=== PATIENT | female | born 1965 | race Caucasian/White ===

== ENCOUNTER 2021-05-07 12:22 | Emergency (ER) | payer BC, OTHER ==
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
[2021-05-07 14:38] VITALS: BP 133/67; TEMP 98.4; O2SAT 100
--- OUTSIDE RECORDS SUMMARY | 2021-05-16 11:39 | XMS REPORT | Continuity of Care Document ---
:1965 Author Organization [facility] t Address [address] [place] [address] Care Team Providers Name Role Phone Dipak Primary Care Physician ANA M Attending Clinician Unavailable Ozzie VEGA Attending Clinician Unavailable Abel Manning MD Attending Clinician González VEGA Attending Clinician Unavailable Daren VEGA Attending Clinician Unavailable LUCIANO Attending Clinician Unavailable Abel MANNING Attending Clinician Unavailable ANA M Attending Clinician Unavailable JOSE Attending Clinician Unavailable Payers Payer Name Policy Type Policy Number Effective Date Expiration Date Jamee noe [employer] [id number] 2017 [facility] 00:00:00 Problems Condition Condition Condition Status Onset Resolution Last Treating Co mments Source Name Details Category Date Date Treatment Clinician Date History of History of Disease Active 2020- U nivers total total 0-27 [place]y [place] [facility] History of History of Disease Active 2020-1 U nivers bladder bladder 0-27 [place] 00 [facility] History of History of Disease Active 2020-1 U nivers hypothyroi hypothyroi 0-27 it y of dism dism 00:00: [place] [id number] Medical Branch Hot Hot Disease Active 2020-1 Univers flashes flashes 0-27 ity of due to due to 00:00: [place] menopause menopause 00 [facility] Postmenopa Postmenopa Disease Active 2020-1 U nivers usal HRT usal HRT 0-27 ity of (hormone (hormone 00:00: [place] replacemen replacemen 00 Me dical t therapy) t therapy) Br anch Hypertensi Hypertensi Problem Active U nivers on on ity of [place] [facility] Menopause Menopause Problem Active Uni vers ity of [place] [facility] Hypothyroi Hypothyroi Problem Active U nivers dism, dism, [place] Low serum Low serum Problem Active Uni vers vitamin D vitamin D ity of [place] [facility] History of History of Problem Resolve Univers thyroid thyroid d ity of nodule nodule [place] [facility] S/P S/P Problem Active Univers radioactiv radioactiv it y of e iodine e iodine [place] thyroid thyroid Physici ablation ablation ans Allergies, Adverse Reactions, Alerts Allergy Allergy Status Severity Reaction(s) Onset Inactive Treating Comm ents Source Name Type Date Date Clinician Acetamin Propensi Active Swelling 2012-07 Univ ers ophen ty to 0-09 ity of adverse 00:00: [place] reaction 00 Medical s Branch ACETAMIN DRUG Active High Anaphylaxis 2012-07 Uni vers OPHEN INGREDI 0-09 ity of 00:00: [place] [facility] NO KNOWN Drug Active Univers ALLERGIE Class ity of S [facility] Acetamin Propensi Active Anaphylaxis U nivers ophen ty to ity of TABS adverse [place] reaction Physici s to ans drug (finding ) Family History Family Member Diagnosis Comments Start Date Stop Date Source Mother Family history of Crohn's University of disease [place] [facility] Mother Family history of Univers ity of arthritis [place] [facility] Mother Family history of lung Un iversity of cancer [place] [facility] Mother Family history of University [facility] [place] [facility] Father Family history of Univers ity of hypertension [place] [facility] ians Father Family history of Univers ity of hypercholesterolemia [facility] s Physicians Father Family history of Diabetes University of type 2, controlled [place] [facility] Social History Social Habit Start Date Stop Date Quantity Comments Source Exposure to Not sure [facility] SARS-CoV-2 [place] Medical (event) Branch Tobacco use and 2020-04-29 2020-04-29 Never used Universit y of exposure 00:00:00 00:00:00 [facility] Alcohol intake 2020-04-29 2020-04-29 Ex-drinker [facility] 00:00:00 00:00:00 (finding) [facility] Sex Ass[birth year] At [birth year] [place] [facility] 00:00:00 00:00:00 Smoking Status Start Date Stop Date Source Tobacco [facility] Never smoker [facility] Branch Medications Ordered Filled Start Stop Current Ordering Indication Dosage Frequency Signature Comments Components Source Medication Medication Date Date Medication? Clinician (SIG) Name Name levothyroxi 2020-07- Yes [id number] 125ug QD Take 1 [facility] ne 07-15-13 tablet Health (Synthroid, 00:00: 05:59 (125 mcg Levoxyl) 00 :00 total) by 125 MCG mouth 1 tablet (one) time each day. ESTRADIOL 2020-07 Yes [id number] TAKE 1 Univers mg tablet -02 TABLET BY ity o f 00:00: MOUTH [place] 00 EVERY DAY Medical Branch Cholecalcif 2019-07 Yes Take by Un ana shanti, 0-27 mouth. ity of Vitamin D3, 20:38: [place] 50 mcg 08 Medical (2,000 Branch unit) tablet Potassium 2019-07 Yes Take by IPPLEX ers 99 mg Tab 0-27 mouth. ity of 20:38: [place] [address] Medical Branch Cetirizine 2019-07 Yes Take by Uni vers (ZYRTEC) 10 0-27 mouth. ity of mg capsule 20:38: [address] Branch Cholecalcif 2019-07 Yes Take by Un ana shanti, 0-27 mouth. ity of Vitamin D3, 20:38: [place] 50 mcg 08 Medical (2,000 Branch unit) tablet Potassium 2019- Yes Take by IPPLEX ers 99 mg Tab 0-27 mouth. ity of 20:38: [place] [address] Medical Branch Cetirizine 2019-07 Yes Take by Uni vers (ZYRTEC) 10 0-27 mouth. ity of mg capsule 20:38: [place] [address] Medical Branch Cholecalcif 2019- Yes Take by Un ana shanti, 0-27 mouth. ity of Vitamin D3, 20:38: [place] 50 mcg 08 Medical (2,000 Branch unit) tablet Potassium 2020- Yes Take by IPPLEX ers 99 mg Tab 0-27 mouth. ity of 20:38: [place] [address] Medical Branch Cetirizine 2019- Yes Take by Uni vers (ZYRTEC) 10 0-27 mouth. ity of mg capsule 20:38: [place] [address] Medical Branch Cholecalcif 2019- Yes Take by Un ana shanti, 0-27 mouth. ity of Vitamin D3, 15:38: [place] 50 [facility] 08 Medical (2,000 Branch unit) tablet Potassium 2019-07 Yes Take by Univ ers 99 mg Tab 0-27 mouth. ity of 15:38: 08 Medical Branch Cetirizine 2019-07 Yes Take by Uni vers (ZYRTEC) 10 0-27 mouth. ity of mg capsule 15:38: [place] 08 Medical Branch estradioL 1 2019-07 Yes [id number] 1mg Take 1 Univers mg tablet 0-27 tablet by ity o f 00:00: mouth [place] 00 daily. Medical Branch estradioL 1 2019-07 Yes [id number] 1mg Take 1 Univers mg tablet 0-27 tablet by ity o f 00:00: mouth [place] 00 daily. Medical Branch estradioL 1 2019-07 Yes [id number] 1mg Take 1 Univers mg tablet 0-27 tablet by ity o f 00:00: mouth [place] 00 daily. Medical Branch estradioL 1 2019-07- No [id number] 1mg Take 1 Univers mg tablet 0-27 05-05 tablet by ity of 00:00: 00:00 mouth [place] 00 :00 daily. Medical Branch levothyroxi 2019-0 Yes 100ug Take 100 U nivers ne 100 mcg 8-25 mcg by ity of tablet 00:00: mouth. [place] [facility] Branch levothyroxi 2019-0 Yes 100ug Take 100 U nivers ne 100 mcg 8-25 mcg by ity of tablet 00:00: mouth. [place] [facility] Branch levothyroxi 0 Yes 100ug Take 100 U nivers ne 100 mcg 8-25 mcg by ity of tablet 00:00: mouth. [place] [facility] Branch levothyroxi 0 Yes 100ug Take 100 U nivers ne 100 mcg 8-25 mcg by ity of tablet 00:00: mouth. [place] [facility] Branch Levothyroxi Levothyroxi Yes MARTHA 1 QD TAKE 1 Univers ne Sodium ne Sodium WIRFEL TABLET i ty of 100 MCG 100 MCG M.D. DAILY. [place] Oral Tablet Oral Tablet P hysici ans Vitamin D Vitamin D Yes 1 QD TAKE 1 Uni vers 1000 UNIT 1000 UNIT TABLET ity of TABS TABS DAILY. [place] Physici ans CVS Allergy CVS Allergy Yes U nivers CAPS CAPS ity of [place] Phys[facility] ans Vital Signs Vital Name Observation Time Observation Value Comments Source Systolic blood 2020-04-29 124 mm[Hg] [facility] 20:33:00 [facility] Diastolic blood 2020-04-29 74 mm[Hg] University o f pressure 20:33:00 [facility] Heart rate 2020-04-29 94 /min University of 20:33:00 [facility] Body height 2020-04-29 167.6 cm University of 20:33:00 [facility] Body weight 2020-04-29 105.688 kg University of 20:33:00 [facility] BMI 2020-04-29 37.61 kg/m2 University of 20:33:00 [facility] Systolic blood 2020-02-26 123 mm[Hg] Location: E; [facility] 15:41:00 Position: [place] Physician s Sitting Diastolic blood 2020-02-26 81 mm[Hg] [facility]: [facility]; [facility] 15:41:00 Position: [place] Physician s Sitting Body height 2020-02-26 66 [in_us] [facility] 15:41:00 [place] Physician s Weight 2020-02-26 231.6 [lb_av] University of 15:41:00 [place] Physician s Body mass index 2020-02-26 37.38 kg/m2 University o f (BMI) [Ratio] 15:41:00 [place] Physicia ns Heart Rate 2020-02-26 63 /min Location: R [facility] 15:41:00 Brachial [place] [facility]ician s Artery; Respiratory rate 2020-02-26 16 /min Quality: Normal Universi of 15:41:00 [place] Physician s BP Systolic 2018-02-21 108 mm[Hg] Location: [facility] 10:58:00 Position: [place] Physician s Sitting BP Diastolic 2018-02-21 75 mm[Hg] Location: [facility] 10:58:00 Position: [place] Physician s Sitting Height 2018-02-21 66 [in_us] [facility] 10:58:00 [place] Physician s Weight 2018-02-21 252.2 [lb_av] University of 10:58:00 [place] Physician s Body Mass Index 2018-02-21 40.71 kg/m2 University o f Calculated 10:58:00 [place] Physician s Temperature 2018-02-21 98.1 [degF] Method: Oral [facility] 10:58:00 [place] Phys[facility] s Heart Rate 2018-02-21 79 /min [facility] of 10:58:00 [place] Physician s Respiration Rate 2018-02-21 18 /min University 10:58:00 [place] Physician s Procedures Procedure Date / Time Performing Clinician Source Performed [QL] TSH, 3RD 2020-01-28 00:00:00 [facility] GENERATION Physicians [QL] T4, FREE 2020-01-28 00:00:00 [facility] Physicians [QL] VITAMIN D, 2020-01-28 00:00:00 [facility] 25-HYDROXY, LC/MS/MS Physicians [QLH] T4, FREE 2018-02-21 00:00:00 [facility] Physicians [QLH] T3, TOTAL 2018-02-21 00:00:00 [facility] Physicians [QLH] TSH, 3RD 2018-02-21 00:00:00 [facility] GENERATION Physicians [[facility]] VITAMIN D, 2018-02-21 00:00:00 [facility] 25-HYDROXY, LC/MS/MS Physicians History of Bladder [facility] Surgery Physicians History of Oophorectomy [facility] - Unilateral (Removal Physicians Of [facility] [place]) History of Hand [facility] xa fracture repair Physicians Encounters Start End Encounter Admission Attending Care Care Encounter Source Date/Time Date/Time Type Type Clinicians Facility Department ID 2021-05-04 Outpatient [facility] [id number] [place] 12:31:42 [facility] 2020-11-08 Outpatient [facility] [id number] [place] 03:27:26 [facility] 2021-05-12 2021-05-12 Telephone Neda Horne [place] [id number] [place] 00:00:00 00:00:00 Neda Horne [id number] [facility] MEDICAL [id number] [place] [id number] 2021-05-11 2021-05-11 Orders MARQUEZ Tolbert [id number] [place] 00:00:00 00:00:00 Only Martha GOODEN [id number] [facility] MEDICAL [id number] [facility] [id number] 2021-05-05 2021-05-05 Refill CESAR Mnaning [id number] Univers 00:00:00 00:00:00 [facility] [id number] ity of CLEAR [id number] Bairon tucker [place] [id number] [facility] 095 Branch OFFICE BUILDING 2021-04-27 2021-04-27 Orders MARQUEZ Tolbert [id number] [place] 00:00:00 00:00:00 Only Martha GOODEN [id number] H [facility] MEDICAL [id number] [facility] [id number] 2021-04-23 2021-04-23 Telephone Cristel Claudio [id number] [place] 00:00:00 00:00:00 Cristel Claudio [id number] Health MEDICAL [id number] [place] [id number] 2021-04-21 2021-04-21 Telephone MARQUEZ Tolbert [id number] [place] 00:00:00 00:00:00 Martha GOODEN [id number] H [facility] MEDICAL [id number] [facility] [id number] 2021-01-16 2021-01-16 Telephone Shelby Mercedes 1.2.840 .114 [id number] [place] 00:00:00 00:00:00 Shelby Mercedes [id number] Health MEDICAL [id number] [place] [id number] 2021-01-16 2021-01-16 Telephone Shelby Mercedes 1.2.840 .114 [id number] [place] 00:00:00 00:00:00 Shelby Mercedes [id number] Health MEDICAL [id number] [place] [id number] 2020-09-24 2020-09-24 Outpatient [facility] [id number] [place] 00:00:00 00:00:00 [facility] [address] 2020-09-24 2020-09-24 Outpatient [facility] [id number] [place] 00:00:00 00:00:00 [facility] [address] 2020-09-24 2020-09-24 Outpatient LUCIANO, [facility] [id number] [place] 00:00:00 00:00:00 [facility] [address] 2020-09-24 2020-09-24 Outpatient LUCIANO, [facility] [id number] [place] 00:00:00 00:00:00 [facility] 781 Method i 2020-06-13 2020-06-13 Outpatient LUCIANO, [facility] [id number] [place] 00:00:00 00:00:00 CHIU 328 Method i 2020-04-29 2020-04-29 Office [facility] [id number] Univers 15:12:53 17:02:28 Visit Toyin [facility] [id number] ity deb [place] [id number] Bairon tucker [place] [id number] [address] [facility] 2020-04-29 2020-04-29 Outpatient Abel [facility] [id number] Univers 15:30:00 15:30:[address] [facility] 2020-03-04 2020-03-04 Outpatient [facility] [id number] [place] 00:00:00 00:00:00 965 Method i 2020-02-26 2020-02-26 Appointmen MARQEUZ TOLBERT [facility] [id number] Univers 15:45:00 15:45:00 t; MARTHA TOLBERT M.D. lty - ity of Mari HENDRICKSON M.D. Physici ans 2019-12-11 2019-12-11 Outpatient CLONINGER, [facility] [id number] [place] 00:00:00 00:00:00 SILKE [address] 2019-12-11 2019-12-11 Outpatient CLONINGER, [facility] [id number] [place] 00:00:00 00:00:00 SILKE [address] 2019-10-06 2019-10-06 Emergency E [facility]BL [facility] [id number] [facility] 03:14:00 03:14:00 2018-02-21 2018-02-21 Appointmen MARQUEZ TOLBERT [id number] [facility] 10:30:00 10:30:00 t; MARTHA TOLBERT M.D. [facility] Margarita Haynes M.D. Physici ans Results Test Description Test Time Test Comments Results Result Comments Source [QL] T4, FREE 2020-02-14 13:18:00 Test Item Value Reference Range Interpretation Comme nts T4,Free(Direct) (test code = 3024-7) 1.49 ng/dL 0.82-1.77 [facility] Physicians[] TSH, 3RD [id number] 13:18:00 Test Item Value Reference Range Interpretation Comments TSH (test code = 68145-7) 2.240 {uIU/mL} 0.450-4.500 [facility] Physicians[L] 25-Hydroxyvitamin D LCMS [id number] 13:18:00 Test Item Value Reference Range Interpretation Comments 25-Hydroxy, 32 ng/mL Reference Range :All Ages: Vitamin D Target levels 3 0 - 100 (test code = 89287-6) 25-Hydroxy, 16 ng/mL This test was d eveloped and its Vitamin D-2 performance (test code = [place] [address]-2) [facility]. It has not been cleared or appr ovedby the Food and Drug Admini stration. 25-Hydroxy, 16 ng/mL This test was d eveloped and its Vitamin D-3 performance (test code = characteristics determined by 1989-3) [facility]. It has not been cleared or appr ovedby the Food and Drug Admini stration. [facility] Physicians[[facility]] TSH, 3RD [id number] 12:38:00 Test Item Value Reference Range Interpretation Comments TSH; Below Low Threshold (test 0.067 {uIU/mL} 0.450-4.500 code = 37188-8) [facility] Physicians[[facility]] VITAMIN D, 25-HYDROXY, LC/MS/[id number] 12:38:00 Test Item Value Reference Range Interpretation Comments Vitamin D, 20.0 ng/mL 30.0-100.0 Vitamin D defic iency has 25-Hydroxy; Below been defin ed by the Low Threshold (test Institut e ofMedicine and code = 37989-5) an Endocrine Society practice guidel ine as alevel of serum 25-OH vitamin D less than 20 ng/mL (1,2).The Endocrine Socie ty went on to further d efine vitamin Dinsuff iciency as a level betw een 21 and 29 ng/mL (2 ).1. IOM ([place] of M edicine). 2010. Dietary r eference intakes for ca lcium and D. Garcias D C: The [employer] ies Press.2. Brandon SANTA, Vera LIMA, Lexa mena FRANKEL, et al. Evaluatio n, treatment, and prevention of v itamin D deficiency: an Endocrine Socie clinical practi ce guideline. JCEM . 2010; 96(7):1911 -30. [facility] Physicians[[facility]] T3, [id number] 12:38:00 Test Item Value Reference Range Interpretation Comments Triiodothyronine (T3) (test code = 110 ng/dL 71-180 3053-6) [facility] Physicians[[facility]] T4, [id number] 12:38:00 Test Item Value Reference Range Interpretation Comments T4,Free(Direct) (test code = 1.73 ng/dL 0.82-1.77 3024-7) University [facility] [place] [facility] Physicians
== END 2021-05-07 14:34 | disposition home or self-care (01) ==
LOC: ER 12:22
DX: S16.1XXA Strain of muscle, fascia and tendon at neck level, initial encounter (principal); V49.40XA Driver injured in collision with unspecified motor vehicles in traffic accident, initial encounter; I10 Essential (primary) hypertension; Z88.6 Allergy status to analgesic agent; Z88.8 Allergy status to other drugs, medicaments and biological substances
CPT/HCPCS: 72125; 99283

== ENCOUNTER 2021-10-27 13:16 | Emergency (ER) | payer BC ==
--- OUTSIDE RECORDS SUMMARY | 2021-10-27 13:24 | XMS REPORT | Continuity of Care Document ---
:1965 Author Organization [facility] t Address [address] [place] [address] Care Team Providers Name Role Phone Dipak Primary Care Physician ANA M Attending Clinician Unavailable TERESITA Attending Clinician Unavailable Chevy Sampson MD Attending Clinician Hong RUIZ Attending Clinician Doctor Unassigned, Name Attending Clinician Unavailable Ton VEGA Attending Clinician Unavailable Teri Angel MD Attending Clinician Ozzie VEGA Attending Clinician Unavailable Sha VERA Attending Clinician Unavailable González VEGA Attending Clinician Unavailable Daren VEGA Attending Clinician Unavailable ANA M Attending Clinician Unavailable JOSE MIGUEL CABRALES Attending Clinician Unavailable Payers Payer Name Policy Type Policy Number Effective Date Expiration Date S kusum [employer] [id number] 2017 [facility] 00:00:00 [employer] [id number] 2017 00:00:00 Problems Condition Condition Condition Status Onset Resolution Last Treating Co mments Source Name Details Category Date Date Treatment Clinician Date Wellness Wellness Disease Active Unive rs examinatio examinatio 09-01 it y of n n 00:00: [place] 00 Medical Branch Intermitte Intermitte Disease Active U nivers nt pain nt pain 2-21 ity of and and 00:00: [place] swelling swelling 00 Medica l of hand of hand Branch Bilateral Bilateral Disease Active Uni vers swelling swelling 2-21 ity of of feet of feet 00:00: [place] and ankles and ankles 00 Me dical Branch History of History of Disease Active 2019-07 U nivers total total 0-27 ity of hysterecto [place]recto [place] my my 00 Medical [facility] History of History of Disease Active 2019-07 U nivers bladder bladder 0-27 [place] of [place] procedure 00 [facility] Branch History of History of Disease Active 2019-07 U nivers hypothyroi hypothyroi 0-27 it y of dism dism 00:00: [place] 00 Medical Branch Hot Hot Disease Active 2019-07 Univers flashes flashes 0-27 ity of due to due to 00:00: [place] menopause menopause 00 [facility] Branch Postmenopa Postmenopa Disease Active 2019-07 U nivers usal HRT usal HRT 0-27 ity of (hormone (hormone 00:00: [place] replacemen replacemen 00 Me dical t therapy) t therapy) Br anch CHEST PAIN Diagnosis Active 2019-11-30 Memoria 4-04 11:21:00 l CHEST 00:00: [place] PAIN 00 Active 10/06/2019 [facility] Pelvic Pelvic Disease Active Methodi prolapse prolapse 5-03 st 00:00: Hospita 00 l Myalgia Myalgia Disease Active 2017-07 Univers 0-09 ity of 00:00: [place] 00 Medical Branch Stress Stress Disease Active Overview: Univer s incontinen incontinen 01-10 Formattin ity of ce of ce of 00:00: g of this [place] urine urine 00 note Medical might be Branch different from the original. Formattin g of this note might be different from the original. Seen by urology in past and had bladder suspensio n without mesh; patient still having issues of incontine nce. Other Other Disease Active Overview: Univer s specified specified 01-09 Formattin i ty of hypothyroi hypothyroi 00:00: g of this [place] dism dism 00 note Medical might be Branch different from the original. Formattin g of this note might be different from the original. She was placed on levothyro xine and then had to add cytomel because she couldn't get stable. She was seeing a specialis t but would like to simply her regimen; s/p CEDEÑO s/s to patient stating had a "hot nodule." Essential Essential Disease Active Overview: Univers hypertensi hypertensi 01-09 Formattin ity of on on 00:00: g of this [place] 00 note Medical might be Branch different from the original. Formattin g of this note might be different from the original. Has been skipping medicatio ns and noticed bp has been staying low; she is working on weight loss and excercisi ng a lot. She is not having any chest pain or sob or headaches . R10.9 - Diagnosis Active 2017-01-31 Me moria UNSPECIFIE 01-24 09:31:00 l D R10.9 - 00:01: [place] ABDOMINAL UNSPECIFIE 00 PAIN D ABDOMINAL PAIN Active 01/24/2017 CLIVE Diaz Irregular Irregular Disease Active Uni vers menstrual menstrual 5-24 ity of cycle cycle 00:00: [place] [facility] Female Female Disease Active Univers genital genital 1-12 ity of prolapse prolapse 00:00: [place] [facility] Cystocele, Cystocele, Disease Active U nivers midline midline 1-11 ity of 00:00: Medical Branch Morbid Morbid Disease Active Univers obesity obesity 1-11 ity of 00:00: Medical Branch Rectocele Rectocele Disease Active Uni vers 1-11 ity of 00:00: Medical Branch RT HIP Diagnosis Active 2017-06-17 Mem oria 07-04 18:22:00 l RT HIP 08:00: P[place] 00 Active 07/04/2016 [facility] Degenerati Problem Active 2021-02-20 M emoria on of 01-17 22:49:12 l lumbar 00:00: [place] interverte Degenerati 00 bral disc on of (disorder) lumbar interverte bral disc (disorder) Active 01/17/2015 Problem 02/20/2021 Data migrated from [facility] on 02/05/15. [facility],Mike [place] Edema of Problem Active 2021-02-20 Mem oria lower 01-17 22:49:12 l extremity Edema of 00:00: Her maddox (finding) lower 00 extremity (finding) Active 01/17/2015 Problem 02/20/2021 Data migrated from [employer] on 02/05/15. [facility], Mike [place] Amnesia Problem Active 2021-02-20 Mina jameson (finding) 01-03 22:49:12 l Amnesia 00:00: [place] (finding) 00 Active 01/03/2015 Problem 02/20/2021 Data migrated from [employer] on 01/08/15. [facility], [place] Low back Problem Active 2021-02-20 Mem oria strain 01-03 22:49:12 l (disorder) Low back 00:00: He rmann strain 00 (disorder) Active 01/03/2015 Problem 02/20/2021 Data migrated from [employer] on 01/08/15. [facility] [place] Urinary Problem Active 2021-02-20 Mina jameson incontinen 07-24 22:49:12 l ce Urinary 00:00: [place] (finding) incontinen 00 ce (finding) Active 07/24/2014 Problem 02/20/2021 Data migrated from [employer] on 01/08/15.Luis Antonio a migrated from [facility] on 12/03/14. [facility], Mike [place] Vitamin D Vitamin D Disease Active Uni vers deficiency deficiency 07-05 it y of 00:00: [place] 00 Medical Branch Hypertensi Problem Active 2021-02-20 M emoria ve 04-02 22:49:12 l disorder, 00:00: [place] systemic Hypertensi 00 arterial ve (disorder) disorder, systemic arterial (disorder) Active 04/02/2014 Problem 02/20/2021 Data migrated from [employer] on 12/03/14. [facility] [place] Hypothyroi Problem Active 2018-10-02 M emoria dism 04-02 21:55:15 l (disorder) 00:00: Anish n Hypothyroi 00 dism (disorder) Active 04/02/2014 Problem 10/02/2018 Data migrated from [facility] on 12/03/14. [facility], MARK [place] Allergic Problem Active 2021-02-20 Mem oria rhinitis 03-25 22:49:12 l (disorder) Allergic 00:00: [place] rhinitis 00 (disorder) Active 03/25/2014 Problem 02/20/2021 Data migrated from [facility] on 12/03/14. [facility], [place] MARK [place] Obesity Problem Active 2021-02-20 Mina jameson (disorder) 03-25 22:49:12 l Obesity 00:00: [place] (disorder) 00 Active 03/25/2014 Problem 02/20/2021 Data migrated from [facility] on 12/03/14. 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 [facility] [place] Neck pain Problem Active 2021-02-20 Me moria (finding) 03-16 22:49:12 l Neck 00:00: [place] pain 00 (finding) Active 03/16/2014 Problem 02/20/2021 Data migrated from [facility] on 12/03/14. [facility], [place], Dino [place] Encounter Encounter Disease Active Uni vers for for 03-06 ity of screening screening 00:[place] for for 00 Medical diabetes diabetes Branch mellitus mellitus Postablati Postablati Disease Active U nivers ve ve 03-06 ity of hypothyroi hypothyroi 00:[place] dis[place] dism 00 Medical Branch Diarrhea Problem Resolve 2021-02-20 Me moria (finding) d 22:49:12 l Diarrhea Anish n (finding) Resolved Problem 02/20/2021 Medical Group, Mike Diaz Otalgia Problem Resolve 2021-02-20 Mem oria (disorder) d 22:49:12 l Otalgia Pasha (disorder) Resolved Problem 02/20/2021 Medical Group, Mike Diaz Flushing Problem Active 2021-02-20 Mem oria (disorder) 22:49:12 l Flushing Anish n (disorder) Active Problem 02/20/2021 [facility], [place] 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:49:12 l hypothyroi Anish n 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) Active Problem 02/20/2021 Medical Group, Mike Diaz Nausea Problem Active 2021-02-20 Memor ia (finding) 22:49:12 l Nausea [place] (finding) Active Problem 02/20/2021 [facility], [place] Stomach Problem Active 2021-02-20 Mina jameson cramps 22:49:12 l (finding) Stomach Herm guevara cramps (finding) Active Problem 02/20/2021 Medical Group, Mike Diaz Past Problem Active 2021-02-20 Memor ia history of 22:49:12 l procedure Past Pasha (context-d history of ependent procedure category) (context-d ependent category) Active Problem 02/20/2021 Medical Group History of History of Problem Resolve Univers thyroid thyroid d ity of nodule nodule [place] [facility] S/P S/P Problem Active Univers radioactiv radioactiv it y of e iodine e iodine [place] thyroid thyroid Physici ablation ablation ans Hypertensi Hypertensi Problem Active U nivers on on ity of [place] [facility] ans Menopause Menopause Problem Active Uni vers ity of [place] [facility] Hypothyroi Hypothyroi Problem Active U nivers dism, dism, [place] of secondary secondary [place] [facility] Low serum Low serum Problem Active Uni vers vitamin D vitamin D ity of [place] [facility] ans Vitamin D Problem Resolve 2015-0 2021-02-20 2021-02-20 Memoria deficiency d 4-02 22:49:12 22:49:12 l (disorder) Vitamin 00:00: Her maddox D 00 deficiency (disorder) Resolved 10/03/2014 Problem 02/20/2021 Data migrated from [facility] on 01/08/15. Medical Group, Mike Diaz Acute Problem Resolve 2013-072021-02-20 2021-02-20 Memoria pharyngiti d 08-21 22:49:12 22:49:12 l s Acute 00:00: [place] (disorder) pharyngiti 00 s (disorder) Resolved 06/20/2014 Problem 02/20/2021 Data migrated from [facility] on 01/17/15. Medical [facility], Mike Diaz Dysuria Problem Resolve 2013-072021-02-20 2021-02-20 Memoria (finding) d 08-21 22:49:12 22:49:12 l Dysuria 00:00: [place] (finding) 00 Resolved 06/20/2014 Problem 02/20/2021 Data migrated from [facility] on 12/03/14. [facility], Mike Diaz Otitis Problem Resolve 2021-02-20 2021-02-20 Memoria media d 03-20 22:49:12 22:49:12 l (disorder) Otitis 00:00: Herm guevara media 00 (disorder) Resolved 03/20/2014 Problem 02/20/2021 Data migrated from [facility] on 01/17/15. [facility], Mike Diaz History of Past Illness Condition Condition Condition Status Onset Resolution Last Treating Co mments Source Name Details Category Date Date Treatment Clinician Date Atrophy of Problem 2021-02-08 2021-02-08 Memoria thyroid - 23:53:40 23:53:40 l (acquired) Atrophy 17:00: Her maddox of thyroid 00 (acquired) 02/05/2021 02/08/2021 Medical Group Encounter Problem 2020-12-31 2020-12-31 Memoria for 12-28 22:06:22 22:06:22 l screening 17:00: [place] for Encounter 00 infections for with a screening predominan for tly sexual infections mode of with a transmissi predominan on tly sexual mode of transmissi on 12/28/2020 12/31/2020 Medical Group Other Problem 2020-2020-10-10 2020-10-10 M emoria interverte 4-06 21:48:22 21:48:22 l bral disc Other 17:00: Anish chowdary degenerati interverte 00 on, lumbar bral disc region degenerati on, lumbar region 10/07/2020 10/10/2020 Medical Group 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 2020-03-24 Memoria single 03-21 21:14:22 21:14:22 l thyroid Nontoxic 17:00: Lauren nn nodule single 00 thyroid nodule 03/21/2020 03/24/2020 Medical Group Abnormal Problem 2020-03-24 2020-03-24 Memoria finding of 03-21 21:14:22 21:14:22 l blood Abnormal 17:00: Anish chowdary chemistry, finding of 00 unspecifie blood d chemistry, unspecifie d 03/21/2020 03/24/2020 Medical Group Cystocele, Problem 2019-2020-03-07 2020-03-07 Memoria unspecifie 03-03 00:24:06 00:24:06 l d 17:00: Pasha Cystocele, 00 unspecifie d 03/03/2020 03/07/2020 Medical Group Other Problem 2019-2019-10-08 2019-10-08 M emoria chest pain 4-04 21:04:02 21:04:02 l Other 17:00: [place] chest pain 00 10/06/2019 10/08/2019 [facility] Pain in Problem 2019-2019-10-08 2019-10-08 Memoria left arm 4-04 21:04:02 21:04:02 l Pain in 17:00: [place] left arm 00 0 10/08/2019 [facility] Allergies, Adverse Reactions, Alerts Allergy Allergy Status Severity Reaction(s) Onset Inactive Treating Comm ents Source Name Type Date Date Clinician Acetamin Propensi Active Anaphylaxis 2018- M ethodi ophen ty to 01-09 st adverse 00:00: Hospita reaction 00 l s to drug Cefdinir Propensi Active Other (See headache Methodi ty to Comments) 1-12 st adverse 00:00: [facility]osp[facility] reaction 00 l s to drug Cefdinir Drug Active Other - See headache U nivers Allergy comments -12 ity of 00:00: [place] 00 Medical Branch CEFDINIR DRUG Active Other-Cmnt Univ ers INGREDI -12 ity of 00:00: [place] 00 Medical Branch acetamin acetamin Active Memori a ophen<simpson ophen<simpson 9-17 l p>1</sup p>1</sup 05:00: Anish n > > 00 Acetamin Propensi Active Swelling 2012-07 Univ ers ophen ty to 0-09 ity of adverse 00:00: [place] reaction 00 Medical s Branch ACETAMIN DRUG Active High Anaphylaxis 2012-07 Uni vers OPHEN INGREDI 0-09 ity of 00:00: [place] 00 Medical Branch cefdinir cefdinir Active Memori a <sup>2</ <sup>2</ l sup> sup> Pasha Family History Family Member Diagnosis Comments Start Date Stop Date Source Natural father Diabetes [facility] [place] [facility] Natural father Hyperlipidemia [facility] Natural father Hypertension [facility] Natural mother Lung cancer [facility] [place] [facility] Paternal uncle Colon cancer [facility] Mother Family history of Crohn's [facility] [place] [facility] Mother Family history of Univers ity of arthritis [place] [facility] Mother Family history of lung Un iversity of cancer [place] [facility] Mother Family history of Univers ity of [place] [facility] Father Family history of Univers ity of hypertension [place] [facility] Father Family history of Univers ity of hypercholesterolemia [facility] Father Family history of Univers ity of Diabetes type 2, [place] controlled Physicians Social History Social Habit Start Date Stop Date Quantity Comments Source Exposure to Not sure University of SARS-CoV-2 [facility] (event) Branch Alcohol intake 2020-09-24 2020-09-24 [facility] 00:00:00 00:00:00 non-drinker of alcohol (finding) Tobacco use and 2018-01-09 2018-01-09 Smokeless tobacco [facility] exposure 00:00:00 00:00:00 non-user Sex [birth year] [facility] [place] [facility] 00:00:00 00:00:00 Smoking Status Start Date Stop Date Source Social History [facility] Tobacco smoking consumption unknown [facility] Medications Ordered Filled Start Stop Current Ordering Indication Dosage Frequency Signature Comments Components Source Medication Medication Date Date Medication? Clinician (SIG) Name Name Potassium Yes Take by Univ ers 99 mg Tab 09-01 mouth. ity of 14:10: [address] valACYclovi Yes valacyclov Univers r 1 gram 09-01 ir 1 gram ity of tablet 14:10: tablet [address] tiZANidine Yes Zanaflex 4 U nivers (ZANAFLEX) 3 mg tablet ity of 4 mg tablet 14:10: Take 1 [place] 35 tablet Medical every 8 Branch hours by oral route. metroNIDAZO Yes metronidaz Univers LE 500 mg 09-01 ole 500 mg ity of tablet 14:10: tablet [place] 35 TAKE 1 Medical TABLET BY Branch MOUTH TWICE A DAY FOR 7 DAYS meloxicam Yes meloxicam Uni vers 7.5 mg 09-01 7.5 mg ity of tablet 14:10: tablet [place] 35 TAKE 1 Medical TABLET Branch EVERY DAY BY ORAL ROUTE WITH MEALS FOR 30 DAYS. melatonin Yes 5mg Take 5 mg Uni vers 10 mg Cap 09-01 by mouth. ity o f 14:10: [address] fluconazole Yes fluconazol Univers 150 mg 09-01 e 150 mg ity of tablet 14:10: tablet [place] 35 TAKE 1 Medical TABLET BY Branch MOUTH EVERY 72 HOURS, TAKE ON THE LAST DAY OF ANTIBIOTIC S doxycycline Yes doxycyclin Univers monohydrate 09-01 e ity of 100 mg 14:10: monohydrat [place] tablet 35 e 100 mg Medical tablet Branch TAKE 1 TABLET BY MOUTH EVERY 12 HOURS FOR 7 DAYS diclofenac Yes diclofenac U nivers 50 mg EC 09-01 sodium 50 ity of tablet 14:10: mg [place] 35 tablet,del Medical ayed Branch release azithromyci Yes azithromyc Univers n 250 mg 09-01 in 250 mg ity of tablet 14:10: tablet TK [place] 35 2 TS PO ON Medical DAY 1, Branch THEN TK 1 T PO D FOR 4 DAYS FOR SINUSITIS INFECTION amoxicillin Yes amoxicilli Univers -clavulanat 09-01 n 875 ity of e 875-125 14:10: mg-potassi [place] mg per 35 um Medical tablet clavulanat Branch e 125 mg tablet TAKE 1 TABLET BY MOUTH TWICE A DAY FOR 10 DAYS cefdinir Yes cefdinir Unive rs 300 mg 09-01 300 mg ity of capsule 14:10: [address] CIPROFLOXAC Yes ciprofloxa Univers IN HCL ORAL 09-01 jessica hcl ity o f 14:10: [address] Branch gabapentin Yes gabapentin U nivers 300 mg 09-01 300 mg ity of capsule 14:10: [address] levocetiriz Yes levocetiri Univers ine 09-01 zine ity of dihydrochlo 14:10: dihydrochl [place] [facility] oride 5 mg Medical (LEVOCETIRI tabs Branch ZINE ORAL) liothyronin Yes liothyroni Univers e sodium 09-01 ne sodium ity of (LIOTHYRONI 14:10: 5 mcg tabs [place] NE ORAL) [address] [place] [address] lisinopriL Yes lisinopril U nivers 10 mg 09-01 10 mg tabs ity of tablet 14:10: [address] norethindro Yes lo Univer s ne-e.estrad 09-01 loestrin ity of iol-iron 14:10: tab [place] ([address] LOESTRIN FE Branch ORAL) meloxicam Yes meloxicam Uni vers 15 mg 09-01 15 mg tabs ity of tablet 14:10: [address] nystatin-tr Yes nystat/tri Univers iamcinolone 3 am cre ity of cream 14:10: [address] predniSONE Yes prednisone U nivers 20 mg 09-01 20 mg tabs ity of tablet 14:10: [address] tiZANidine Yes tizanidine U nivers 4 mg 09-01 hcl 4 mg ity of capsule 14:10: tabs [address] solifenacin Yes vesicare 5 Univers (VESICARE) 3 mg tabs ity of 5 mg tablet 14:10: [address] traMADoL 50 Yes tramadol Un ana mg tablet 09-01 hcl 50 mg ity o f 14:10: tabs [address] sodium,pota Yes suprep [facility] ers ssium,mag 09-01 bowel duyen ity o f sulfates 14:10: prep kit [place] (SUPREP Medical BOWEL PREP Branch KIT) 17.5-3.13-1 .6 gram Potassium Yes Take by [facility] ers 99 mg Tab 09-01 mouth. ity of 14:10: [address] valACYclovi Yes valacyclov Univers r 1 gram 09-01 ir 1 gram ity of tablet 14:10: tablet [address] tiZANidine Yes Zanaflex 4 U nivers (ZANAFLEX) 09-01 mg tablet ity of 4 mg tablet 14:10: Take 1 [place] 35 tablet Medical every 8 Branch hours by oral route. metroNIDAZO Yes metronidaz Univers LE 500 mg 09-01 ole 500 mg ity of tablet 14:10: tablet [place] [address] TAKE 1 Medical TABLET BY Branch MOUTH TWICE A DAY FOR 7 DAYS meloxicam Yes meloxicam Uni vers 7.5 mg 09-01 7.5 mg ity of tablet 14:10: tablet [place] [address] TAKE 1 Medical TABLET Branch EVERY DAY BY ORAL ROUTE WITH MEALS FOR 30 DAYS. melatonin Yes 5mg Take 5 mg Uni vers 10 mg Cap 09-01 by mouth. ity o f 14:10: [address] fluconazole Yes fluconazol Univers 150 mg 09-01 e 150 mg ity of tablet 14:10: tablet [place] [address] TAKE 1 Medical TABLET BY Branch MOUTH EVERY 72 HOURS, TAKE ON THE LAST DAY OF ANTIBIOTIC S doxycycline Yes doxycyclin Univers monohydrate 09-01 e ity of 100 mg 14:10: monohydrat [place] tablet 35 e 100 mg Medical tablet Branch TAKE 1 TABLET BY MOUTH EVERY 12 HOURS FOR 7 DAYS diclofenac Yes diclofenac U nivers 50 mg EC 09-01 sodium 50 ity of tablet 14:10: mg [place] [address] tablet,del Medical ayed Branch release azithromyci Yes azithromyc Univers n 250 mg 09-01 in 250 mg ity of tablet 14:10: tablet TK [place] [address] 2 TS PO ON Medical DAY 1, Branch THEN TK 1 T PO D FOR 4 DAYS FOR SINUSITIS INFECTION amoxicillin Yes amoxicilli Univers -clavulanat 09-01 n 875 ity of e 875-125 14:10: mg-potassi [place] mg per 35 um Medical tablet clavulanat Branch e 125 mg tablet TAKE 1 TABLET BY MOUTH TWICE A DAY FOR 10 DAYS cefdinir Yes cefdinir Unive rs 300 mg 09-01 300 mg ity of capsule 14:10: [address] CIPROFLOXAC Yes ciprofloxa Univers IN HCL ORAL 09-01 jessica hcl ity o f 14:10: [address] Branch gabapentin Yes gabapentin U nivers 300 mg 09-01 300 mg ity of capsule 14:10: [address] levocetiriz Yes levocetiri Univers ine 09-01 zine ity of dihydrochlo 14:10: dihydrochl [place] [address] oride 5 mg Medical (LEVOCETIRI tabs Branch ZINE ORAL) liothyronin Yes liothyroni Univers e sodium 09-01 ne sodium ity of (LIOTHYRONI 14:10: 5 mcg tabs [place] NE ORAL) [address] [place] [address] lisinopriL Yes lisinopril U nivers 10 mg 09-01 10 mg tabs ity of tablet 14:10: [address] norethindro Yes [facility] s ne-e.estrad 09-01 loestrin ity of iol-iron 14:10: tab [place] ([address] LOESTRIN FE Branch ORAL) meloxicam Yes meloxicam Uni vers 15 mg 09-01 15 mg tabs ity of tablet 14:10: [address] nystatin-tr Yes nystat/tri Univers iamcinolone 3 am cre ity of cream 14:10: [address] predniSONE Yes prednisone U nivers 20 mg 09-01 20 mg tabs ity of tablet 14:10: [address] tiZANidine Yes tizanidine U nivers 4 mg 09-01 hcl 4 mg ity of capsule 14:10: tabs [address] solifenacin Yes vesicare 5 Univers (VESICARE) 3- mg tabs ity of 5 mg tablet 14:10: [address] traMADoL 50 Yes tramadol Un ana mg tablet 09-01 hcl 50 mg ity o f 14:10: tabs [address] sodium,pota Yes suprep Univ ers ssium,mag 09-01 bowel duyen ity o f sulfates 14:10: prep kit [place] (SUPREP Medical BOWEL PREP Branch KIT) 17.5-3.13-1 .6 gram Potassium Yes Take by Univ ers 99 mg Tab 09-01 mouth. ity of 14:10: [address] valACYclovi Yes valacyclov Univers r 1 gram 09-01 ir 1 gram ity of tablet 14:10: tablet [address] tiZANidine Yes Zanaflex 4 U nivers (ZANAFLEX) 09-01 mg tablet ity of 4 mg tablet 14:10: Take 1 [place] 35 tablet Medical every 8 Branch hours by oral route. metroNIDAZO Yes metronidaz Univers LE 500 mg 09-01 [place] 500 mg ity of tablet 14:10: tablet [place] 35 TAKE 1 Medical TABLET BY Branch MOUTH TWICE A DAY FOR 7 DAYS meloxicam Yes meloxicam Uni vers 7.5 mg 09-01 7.5 mg ity of tablet 14:10: tablet [place] 35 TAKE 1 Medical TABLET Branch EVERY DAY BY ORAL ROUTE WITH MEALS FOR 30 DAYS. melatonin Yes 5mg Take 5 mg Uni vers 10 mg Cap 09-01 by mouth. ity o f 14:10: [address] fluconazole Yes fluconazol Univers 150 mg 09-01 e 150 mg ity of tablet 14:10: tablet [place] 35 TAKE 1 Medical TABLET BY Branch MOUTH EVERY 72 HOURS, TAKE ON THE LAST DAY OF ANTIBIOTIC S doxycycline Yes doxycyclin Univers monohydrate 09-01 e ity of 100 mg 14:10: monohydrat [place] tablet 35 e 100 mg Medical tablet Branch TAKE 1 TABLET BY MOUTH EVERY 12 HOURS FOR 7 DAYS diclofenac Yes diclofenac U nivers 50 mg EC 09-01 sodium 50 ity of tablet 14:10: mg [place] [address] tablet,del Medical ayed Branch release azithromyci Yes azithromyc Univers n 250 mg 09-01 in 250 mg ity of tablet 14:10: tablet TK [place] 35 2 TS PO ON Medical DAY 1, Branch THEN TK 1 T PO D FOR 4 DAYS FOR SINUSITIS INFECTION amoxicillin Yes amoxicilli Univers -clavulanat 09-01 n 875 ity of e 875-125 14:10: mg[place]assi [place] mg per 35 um Medical tablet clavulanat [place] e 125 mg tablet TAKE 1 TABLET BY MOUTH TWICE A DAY FOR 10 DAYS cefdinir Yes cefdinir Unive rs 300 mg 09-01 300 mg ity of capsule 14:10: caps [address] CIPROFLOXAC Yes ciprofloxa Univers IN HCL ORAL 09-01 jessica hcl ity o f 14:10: [address] Branch gabapentin Yes gabapentin U nivers 300 mg 09-01 300 mg ity of capsule 14:10: [address] levocetiriz Yes levocetiri Univers ine 09-01 zine ity of dihydrochlo 14:10: dihydrochl [facility] 35 oride 5 mg Medical (LEVOCETIRI [facility] Branch ZINE ORAL) liothyronin Yes liothyroni Univers e sodium 09-01 ne sodium ity of (LIOTHYRONI 14:10: 5 mcg tabs [place] NE ORAL) [address] [place] [address] lisinopriL Yes lisinopril U nivers 10 mg 09-01 10 mg tabs ity of tablet 14:10: [address] norethindro Yes lo Univer s ne-e.estrad 09-01 loestrin ity of iol-iron 14:10: tab [place] ([address] LOESTRIN FE Branch ORAL) meloxicam Yes meloxicam Uni vers 15 mg 09-01 15 mg tabs ity of tablet 14:10: [address] nystatin-tr Yes nystat/tri Univers iamcinolone 09-01 am cre ity of cream 14:10: [address] predniSONE Yes prednisone U nivers 20 mg 3- 20 mg tabs ity of tablet 14:10: [address] tiZANidine Yes tizanidine U nivers 4 mg 09-01 hcl 4 mg ity of capsule 14:10: tabs [address] solifenacin Yes vesicare 5 Univers (VESICARE) 3- mg tabs ity of 5 mg tablet 14:10: [address] traMADoL 50 Yes tramadol Un ana mg tablet 09-01 hcl 50 mg ity o f 14:10: tabs [address] sodium,pota Yes suprep [facility] ers ssium,mag 09-01 bowel duyen ity o f sulfates 14:10: prep kit [place] ([place] [address] Medical BOWEL PREP Branch KIT) 17.5-3.13-1 .6 gram Potassium Yes Take by Univ ers 99 mg Tab 09-01 mouth. ity of 14:10: [address] valACYclovi Yes valacyclov Univers r 1 gram 09-01 ir 1 gram ity of tablet 14:10: tablet [address] tiZANidine Yes Zanaflex 4 U nivers (ZANAFLEX) 3- mg tablet ity of 4 mg tablet 14:10: Take 1 [place] 35 tablet Medical every 8 Branch hours by oral route. metroNIDAZO Yes metronidaz Univers LE 500 mg 09-01 ole 500 mg ity of tablet 14:10: tablet [place] 35 TAKE 1 Medical TABLET BY Branch MOUTH TWICE A DAY FOR 7 DAYS meloxicam Yes meloxicam Uni vers 7.5 mg 09-01 7.5 mg ity of tablet 14:10: tablet [place] 35 TAKE 1 Medical TABLET Branch EVERY DAY BY ORAL ROUTE WITH MEALS FOR 30 DAYS. melatonin Yes 5mg Take 5 mg Uni vers 10 mg Cap 09-01 by mouth. ity o f 14:10: [address] fluconazole Yes fluconazol Univers 150 mg 3- e 150 mg ity of tablet 14:10: tablet [place] 35 TAKE 1 Medical TABLET BY Branch MOUTH EVERY 72 HOURS, TAKE ON THE LAST DAY OF ANTIBIOTIC S doxycycline Yes doxycyclin Univers monohydrate 09-01 e ity of 100 mg 14:10: monohydrat [place] tablet 35 e 100 mg Medical tablet Branch TAKE 1 TABLET BY MOUTH EVERY 12 HOURS FOR 7 DAYS diclofenac Yes diclofenac U nivers 50 mg EC 09-01 sodium 50 ity of tablet 14:10: mg [place] 35 tablet,del Medical ayed Branch release azithromyci Yes azithromyc Univers n 250 mg 09-01 in 250 mg ity of tablet 14:10: tablet TK [place] 35 2 TS PO ON Medical DAY 1, Branch THEN TK 1 T PO D FOR 4 DAYS FOR SINUSITIS INFECTION amoxicillin Yes amoxicilli Univers -clavulanat 09-01 n 875 ity of e 875-125 14:10: [place] mg per 35 um Medical tablet clavulanat [place] 125 mg tablet TAKE 1 TABLET BY MOUTH TWICE A DAY FOR 10 DAYS cefdinir Yes cefdinir Unive rs 300 mg 09-01 300 mg ity of capsule 14:10: caps [address] CIPROFLOXAC Yes ciprofloxa Univers IN HCL ORAL 09-01 jessica hcl ity o f 14:10: [address] Branch gabapentin Yes gabapentin U nivers 300 mg 09-01 300 mg ity of capsule 14:10: [address] Branch levocetiriz Yes levocetiri Univers ine 09-01 zine ity of dihydrochlo 14:10: dihydrochl [place] ride 35 oride 5 mg Medical (LEVOCETIRI tabs Branch ZINE ORAL) liothyronin Yes liothyroni Univers e sodium 09-01 ne sodium ity of (LIOTHYRONI 14:10: 5 mcg tabs [place] NE ORAL) [address] [place] [address] Branch lisinopriL Yes lisinopril U nivers 10 mg 09-01 10 mg tabs ity of tablet 14:10: [address] norethindro Yes lo Univer s ne-e.estrad 09-01 loestrin ity of iol-iron 14:10: tab [place] ([address] LOESTRIN FE Branch ORAL) meloxicam Yes meloxicam Uni vers 15 mg 3- 15 mg tabs ity of tablet 14:10: [address] nystatin-tr Yes nystat/tri Univers iamcinolone 3-01 am cre ity of cream 14:10: [address] predniSONE Yes prednisone U nivers 20 mg 3- 20 mg tabs ity of tablet 14:10: [address] tiZANidine Yes tizanidine U nivers 4 mg 3- hcl 4 mg ity of capsule 14:10: tabs [address] solifenacin Yes vesicare 5 Univers (VESICARE) 3- mg tabs ity of 5 mg tablet 14:10: [address] traMADoL 50 Yes tramadol Un ana mg tablet 3 hcl 50 mg ity o f 14:10: tabs [address] sodium,pota Yes suprep Univ ers ssium,mag 3 bowel duyen ity o f sulfates 14:10: prep kit [place] ([address] BOWEL PREP Branch KIT) 17.5-3.13-1 .6 gram ibuprofen 2021- No [id number] 600mg Take 1 Univers 600 mg 2-21 03-24 tablet by ity of tablet 00:00: 04:59 mouth [place] 00 :00 every 6 Medical (six) Branch hours as needed for Pain (scale 4-6) for up to 30 days. levothyroxi Yes TAKE 1 Univ ers ne 125 mcg 2-12 TABLET BY ity of tablet 00:00: MOUTH 1 [place] 00 TIME EACH Medical DAY. Branch levothyroxi Yes TAKE 1 Univ ers ne 125 mcg 2-12 TABLET BY ity of tablet 00:00: MOUTH 1 [place] 00 TIME EACH Medical DAY. Branch levothyroxi Yes TAKE 1 Univ ers ne 125 mcg 2-12 TABLET BY ity of tablet 00:00: MOUTH 1 [place] 00 TIME EACH Medical DAY. Branch levothyroxi Yes TAKE 1 Univ ers ne 125 mcg 2-12 TABLET BY ity of tablet 00:00: MOUTH 1 [place] 00 TIME EACH Medical DAY. Branch melatonin Yes 5mg QD Take 5 mg Met hodi 10 mg 2-[address] capsule 14:18: nightly. Hospit a 22 Prn onpy, l per pt levothyroxi Yes 100ug QD Take 100 M ethodi ne 2-[address] (SYNTHROID, 14:18: mouth Hospi ta LEVOXYL) 22 daily. l 100 mcg tablet cetirizine Yes 10mg QD Take 10 mg M ethodi (ZyrTEC) 10 2-[address] MG tablet 14:18: daily. Hospit a 22 l cholecalcif Yes 1000U QD Take 1,000 Methodi shanti, 2-[address] vitamin D3, 14:18: mouth Hospi ta 1,000 unit 22 daily. l tablet ESTRADIOL 1 Yes [id number] TAKE 1 Univers mg tablet 2-07 TABLET BY ity o f 00:00: MOUTH [place] 00 EVERY DAY Medical Branch ESTRADIOL 1 Yes [id number] TAKE 1 Univers mg tablet 2-07 TABLET BY ity o f 00:00: MOUTH [place] 00 EVERY DAY Medical Branch ESTRADIOL 1 0 Yes [id number] TAKE 1 Univers mg tablet 2-07 TABLET BY ity o f 00:00: MOUTH [place] 00 EVERY DAY Medical Branch ESTRADIOL 1 0 Yes [id number] TAKE 1 Univers mg tablet 2-07 TABLET BY ity o f 00:00: MOUTH [place] 00 EVERY DAY Medical Branch levothyroxi 2020-07- No [id number] 125ug QD Take 1 [place] ne 07-15-13 tablet Health (Synthroid, 00:00: 05:59 (125 mcg Levoxyl) 00 :00 total) by 125 MCG mouth 1 tablet (one) time each day. levothyroxi 2020-07- No [id number] 125ug QD Take 1 [place] ne 1-12 11-13 tablet Health (Synthroid, 00:00: 05:59 (125 mcg Levoxyl) 00 :00 total) by 125 MCG mouth 1 tablet (one) time each day. levothyroxi 2020- No [place] ne 8-28 11-12 Health (Synthroid, 00:00: 00:00 Levoxyl) 00 :00 100 MCG tablet levothyroxi Yes = 1 tab, Me moria ne 100 mcg 6-18 PO, Daily, l (0.1 mg) 16:00: # 90 tab, Herm guevara oral tablet 00 4 Refill(s), [id number], 167.64, cm, 12/19/20 10:58:00 CDT, Height, 102.273, kg, 12/19/20 10:58:00 CDT, Weight levothyroxi 2020-0 Yes = 1 tab, Me moria ne 100 mcg 3-03 PO, Daily, l (0.1 mg) 20:58: # 90 tab, Herm guevara oral tablet 00 0 Refill(s), 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, Weight Amoxicillin 2019-07 Yes 875 mg = 1 Memoria 875 MG / 1-27 tab, PO, l Clavulanate 16:23: BID, X 10 H ermann 125 MG Oral 00 day, # 20 Tablet tab, 0 [Augmentin Refill(s), 875-mg] Pharmacy: [facility] #[id number], 167.64, cm, 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 ity of Vitamin D3, 15:38: [place] 50 mcg 08 Medical (2,000 Branch unit) tablet Cetirizine 2020-1 Yes Take by Uni vers (ZYRTEC) 10 0-27 mouth. ity of mg capsule 15:38: [place] [address] Medical Branch Cholecalcif 2020-1 Yes Take by Un ana shanti, 0-27 mouth. ity of Vitamin D3, 15:38: [place] 50 mcg 08 Medical (2,000 Branch unit) tablet Cetirizine 2020-1 Yes Take by Uni vers (ZYRTEC) 10 0-27 mouth. ity of mg capsule 15:38: [place] [address] Medical Branch Cholecalcif 2020-1 Yes Take by Un ana shanti, 0-27 mouth. ity of Vitamin D3, 15:38: [place] 50 mcg 08 Medical (2,000 Branch unit) tablet Cetirizine 2020-1 Yes Take by Uni vers (ZYRTEC) 10 0-27 mouth. ity of mg capsule 15:38: [place] [address] Medical Branch Cholecalcif 2020-1 Yes Take by Un ana shanti, 0-27 mouth. ity of Vitamin D3, 15:38: [place] 50 mcg 08 Medical (2,000 Branch unit) tablet Cetirizine 2020-1 Yes Take by Uni vers (ZYRTEC) 10 0-27 mouth. ity of mg capsule 15:38: [address] Branch levothyroxi 2020-0 Yes 100ug Take 100 U nivers ne 100 mcg 8-25 mcg by ity of tablet 00:00: mouth. [place] [facility] Branch levothyroxi 2020-0 Yes 100ug Take 100 U nivers ne 100 mcg 8-25 mcg by ity of tablet 00:00: mouth. [place] [facility] Branch levothyroxi 2020-0 Yes 100ug Take 100 U nivers ne 100 mcg 8-25 mcg by ity of tablet 00:00: mouth. [place] [facility] Branch levothyroxi 2020-0 Yes 100ug Take 100 U nivers ne 100 mcg 8-25 mcg by ity of tablet 00:00: mouth. [place] [facility] Branch meloxicam 2020-0 Yes 15 mg = 1 Mem oria 15 mg oral 6-09 tab, PO, l tablet 18:21: Daily, PRN Lauren nn 00 Pain, # 90 tab, 1 Refill(s), Pharmacy: [facility] #[id number] baclofen 10 2019-0 Yes 10 mg = 1 M emoria mg oral 6-09 tab, PO, l tablet 18:21: TID, PRN [place] 00 Spasms or muscle tension, # 90 tab, 0 Refill(s), Pharmacy: [facility] #[id number] estradioL 2019-0 2021- No [id number] 1mg QD Take 1 M ethodi (ESTRACE) 1 12-10 06-10 tablet (1 st MG tablet 00:00: 04:59 mg total) Ho spita 00 :00 by mouth l daily. amoxicillin 2019- Yes 875 mg = 1 Memoria 875 mg oral 5-08 tab, PO, l tablet 21:06: BID, X 10 Anish n 00 day, # 20 tab, 0 Refill(s), Pharmacy: [facility] #[id number] Doxycycline 2019-0 Yes 100 mg = 1 Memoria Monohydrate 5-06 tab, PO, l 100 MG Oral 22:07: Q12H, X 7 H ermann Tablet 00 day, # 14 tab, 0 Refill(s), Pharmacy: [facility] #[id number] levothyroxi 2019-0 No 100 Memori a ne 100 mcg 5-06 microgram l (0.1 mg) 19:27: = 1 tab, Lauren nn oral tablet 00 PO, Daily, # 90 tab, 0 Refill(s), Pharmacy: [facility] #[id number] Vitamin D2 2019-0 Yes 50,000 Memor ia 50,000 intl 1-22 IntlUnit = l units oral 04:12: 1 cap, PO, H ermann capsule 00 2x/Wk, # 24 cap, 0 Refill(s), Pharmacy: [facility] #[id number] Fluticasone 2019-0 Yes 2 spray, Me moria propionate 1-21 NASAL, l 0.05 03:19: Daily, in [place] MG/ACTUAT 00 each Metered nostril, # Dose Nasal 16 gm, 1 [place] Refill(s) [Flonase] doxycycline 2018-07 Yes 100 mg = 1 Memoria hyclate 100 0-29 tab, PO, l MG Oral 14:48: Q12H, X 14 Herm guevara Tablet 00 day, # 28 tab, 0 Refill(s), [facility] ibuprofen 2018-07 Yes 800 mg = 1 Me moria 800 mg oral 0-29 tab, PO, l tablet 14:48: Q8H, PRN [place] 00 Fever or Pain, Take with food, X 10 day, # 30 tab, 0 Refill(s), Pharmacy: [facility] #67 metaxalone 2018-07 Yes 800 mg = 1 M emoria 800 MG Oral 0-29 tab, PO, l Tablet 14:48: TID, X 10 Anish n [Skelaxin] 00 day, # 30 tab, 0 Refill(s), Pharmacy: [facility] predniSONE 2018-07 Yes See Memoria 10 mg oral 0-29 Special l tablet 14:48: Instructio Lauren nn 00 ns, PO, Daily, Days 1-4 - 3 tabs daily Days 5-8 - 2 tabs daily Days 9-12 - 1 tab daily, X 12 day, # 24 tab, 0 Refill(s), [facility] doxycycline 2018-07 Yes 100 mg = 1 Memoria hyclate 100 0-29 tab, PO, l MG Oral 14:48: Q12H, X 14 Herm guevara Tablet 00 day, # 28 tab, 0 Refill(s), [facility] ibuprofen 2018-07 Yes 800 mg = 1 Me moria 800 mg oral 0-29 tab, PO, l tablet 14:48: Q8H, PRN [place] 00 Fever or Pain, Take with food, X 10 day, # 30 tab, 0 Refill(s), [facility] metaxalone 2018-07 Yes 800 mg = 1 M emoria 800 MG Oral 0-29 tab, PO, l Tablet 14:48: TID, X 10 Anish n [Skelaxin] 00 day, # 30 tab, 0 Refill(s), [facility] predniSONE 2018-07 Yes See Memoria 10 mg oral 0-29 Special l tablet 14:48: Instructio Lauren nn 00 ns, PO, Daily, Days 1-4 - 3 tabs daily Days 5-8 - 2 tabs daily Days 9-12 - 1 tab daily, X 12 day, # 24 tab, 0 Refill(s), [id number] levothyroxi 2018-07 Yes 100 Memori a ne 100 mcg 0-23 microgram l (0.1 mg) 18:12: = 1 tab, Lauren nn oral tablet 00 PO, Daily, # 90 tab, 1 Refill(s), [id number] levothyroxi 2018-07 Yes 100 Memori a ne 100 mcg 0-23 microgram l (0.1 mg) 18:12: = 1 tab, Lauren nn oral tablet 00 PO, Daily, # 90 tab, 1 Refill(s), [id number] Amoxicillin 2018-07 Yes 875 mg = 1 Memoria 875 MG / 0-23 tab, PO, l Clavulanate 02:19: Q12H, X 7 H ermann 125 MG Oral 00 day, # 14 Tablet tab, 0 [Augmentin Refill(s), 875-mg] [id number] Amoxicillin 2018-07 Yes 875 mg = 1 Memoria 875 MG / 0-23 tab, PO, l Clavulanate 02:19: Q12H, X 7 H ermann 125 MG Oral 00 day, # 14 Tablet tab, 0 [Augmentin Refill(s), 875-mg] [id number] 0.5 ML 2018-07 Yes 0.5 mL, Memoria Varicella 0-18 IM, ONCE, l zoster 16:01: repeat [place] virus 00 dose in 2 glycoprotei to 6 n E, months, # recombinant 1 mL, 1 0.1 MG/ML Refill(s), [facility]jection [id number] 0.5 ML 2018-07 Yes 0.5 mL, Memoria Varicella 0-18 IM, ONCE, l zoster 16:01: repeat [place] virus 00 dose in 2 glycoprotei to 6 n E, months, # recombinant 1 mL, 1 0.1 MG/ML Refill(s), Injection [id number] Ipratropium 2018-07 Yes 84 Memori a [employer] 0-18 microgram l 0.042 15:58: = 2 spray, Anish n MG/ACTUAT 00 NASAL, Metered QID, X 14 Dose Nasal day, # 1 [place] ea, 1 Refill(s), Pharmacy: [facility] #[id number] Ipratropium 2018-07 Yes 84 Memori a [employer] 0-18 microgram l 0.042 15:58: = 2 spray, Anish n MG/ACTUAT 00 NASAL, Metered QID, X 14 Dose Nasal day, # 1 [place] ea, 1 Refill(s), Pharmacy: [facility] #[id number] fluconazole 2018-07 Yes 150 mg = 1 Memoria 150 mg oral 0-18 tab, PO, l tablet 15:51: ONCE, November Anish n 00 repeat a dose 72 hours later, # 2 tab, 0 Refill(s), Pharmacy: [facility] #[id number] fluconazole 2018-07 Yes 150 mg = 1 Memoria 150 mg oral 0-18 tab, PO, l tablet 15:51: ONCE, November Anish n 00 repeat a dose 72 hours later, # 2 tab, 0 Refill(s), Pharmacy: [facility] #[id number] Depo-Medrol 2018-07 No 80 mg, Mina jameson 0-18 Route: IM, l 15:50: Drug form: [place] 00 SUSP, ONCE, Dosing Weight 101.818, kg, Start date: 04/20/19 10:50:00 CDT, Stop date: 04/20/19 10:50:00 CDT Depo-Medrol 2018-07 No 80 mg, Mina jameson 0-18 Route: IM, l 15:50: Drug form: [place] 00 SUSP, ONCE, Dosing Weight 101.818, kg, Start date: 04/20/19 10:50:00 CDT, Stop date: 04/20/19 10:50:00 CDT Ipratropium 2018-07 No 2 spray, Me moria [employer] 0-18 NASAL, l 0.042 15:12: QID, 0 [place] MG/ACTUAT 00 Refill(s) Metered Dose Nasal [place] Ipratropium 2018-07 No 2 spray, Me moria [employer] 0-18 NASAL, l 0.042 15:12: QID, 0 [place] MG/ACTUAT 00 Refill(s) Metered Dose Nasal [place] Estradiol 1 2018-07 Yes 1 mg = 1 Me moria MG Oral 0-18 tab, PO, l Tablet 15:11: Daily, 0 00 Refill(s) Estradiol 2018-07 Yes 1 mg = 1 Me moria MG Oral 0-18 tab, PO, l Tablet 15:11: Daily, 0 00 Refill(s) Zyrtec Yes Daily, 0 Memoria 4-18 Refill(s) l 17:30: Melatonin No Bedtime, 0 Me moria 4-18 Refill(s) l 17:30: [place] 00 Zyrtec Yes Daily, 0 Memoria 4-18 Refill(s) l 17:30: Melatonin No Bedtime, 0 Me moria 4-18 Refill(s) l 17:30: lisinopril 2017-07 Yes See Memoria 10 mg oral 0-03 Instructio l tablet 21:00: ns, # 90 [place] 50 tab, Refill(s) 1, TAKE 1 TABLET BY MOUTH EVERY DAY, Pharmacy: [facility] #[id number] lisinopril 2017-07 Yes See Memoria 10 mg oral 0-03 Instructio l tablet 21:00: ns, # 90 [place] 50 tab, Refill(s) 1, TAKE 1 TABLET BY MOUTH EVERY DAY, Pharmacy: [facility] #[id number] liothyronin Yes See Memori a e 5 mcg 5-16 Instructio l oral tablet 13:46: ns, 1 tab H ermann 36 PO Daily on tuesday & tuesday, and 2 tabs PO daily on , # 150 tab, 3 Refill(s), Pharmacy: [facility] #[id number] liothyronin Yes See Memori a e 5 mcg 5-16 Instructio l oral tablet 13:46: ns, 1 tab H ermann 36 PO Daily on tuesday & tuesday, and 2 tabs PO daily on , # 150 tab, 3 Refill(s), Pharmacy: [facility] #[id number] Promethazin Yes 25 mg = 1 M emoria e 4-20 tab, PO, l Hydrochlori 21:16: Q6H, PRN He rmann de 25 MG 00 Nausea/Vom Oral Tablet iting, # 30 tab, 0 Refill(s), [id number] Promethazin 2018-0 Yes 25 mg = 1 M emoria e 4-20 tab, PO, l Hydrochlori 21:16: Q6H, PRN He rmann de 25 MG 00 Nausea/Vom Oral Tablet iting, # 30 tab, 0 Refill(s), [id number] dicyclomine 2018-0 Yes 10 mg = 1 M emoria 10 mg oral 4-19 cap, PO, l capsule 20:14: QID-Before Herm guevara 00 Meals, # 40 cap, 0 Refill(s), Pharmacy: [facility] #[id number] Ondansetron 2018-0 No 4 mg = 1 Me moria 4 MG 4-19 tab, PO, l Disintegrat 20:14: TID, PRN He rmann ing Tablet 00 Nausea / Vomiting, Dissolve tab under tongue, # 10 tab, 0 Refill(s), Pharmacy: [facility] #[id number] dicyclomine 2018-0 Yes 10 mg = 1 M emoria 10 mg oral 4-19 cap, PO, l capsule 20:14: QID-Before Herm guevara 00 Meals, # 40 cap, 0 Refill(s), Pharmacy: [facility] #[id number] Ondansetron 2018-0 No 4 mg = 1 Me moria 4 MG 4-19 tab, PO, l Disintegrat 20:14: TID, PRN He rmann ing Tablet 00 Nausea / Vomiting, Dissolve tab under tongue, # 10 tab, 0 Refill(s), Pharmacy: [facility] #[id number] levothyroxi 2018-0 Yes 112 Memori a ne 112 mcg 3-16 microgram l (0.112 mg) 05:06: = 1 tab, Her maddox oral tablet 00 PO, Daily, # 90 tab, 1 Refill(s), Pharmacy: [facility] #[id number] levothyroxi 2018-0 Yes 112 Memori a ne 112 mcg 3-16 microgram l (0.112 mg) 05:06: = 1 tab, Her maddox oral tablet 00 PO, Daily, # 90 tab, 1 Refill(s), Pharmacy: [facility] #[id number] Levothyroxi Levothyroxi Yes EMEKA 1 QD TAKE 1 Univers ne Sodium ne Sodium WIRFEL TABLET i ty of 100 MCG 100 MCG M.D. DAILY. [place] Oral Tablet Oral Tablet P hysici ans Vitamin D Vitamin D Yes 1 QD TAKE 1 Uni vers 1000 UNIT 1000 UNIT TABLET ity of TABS TABS DAILY. [place] Physici ans CVS Allergy CVS Allergy Yes U nivers CAPS CAPS ity of [place] Physici ans Immunizations Ordered Filled Immunization Date Status Comments Sour e Immunization Name Name Influenza High Dose 2021-03-04 Completed Unive rsity of 00:00:00 [facility] Influenza High Dose 2021-03-04 Completed Unive rsity of 00:00:00 [facility] Influenza High Dose 2021-03-04 Completed Unive rsity of 00:00:00 [facility] Influenza High Dose 2021-03-04 Completed Unive rsity of 00:00:00 [facility] Influenza Virus 2020-04-14 Completed Universit y of Vaccine Quad .5 mL 00:00:00 [facility] 6+ [place] Branch Influenza Virus 2020-04-14 Completed Universit y of Vaccine Quad .5 mL 00:00:00 [facility] 6+ [place] Branch Influenza Virus 2020-04-14 Completed Universit y of Vaccine Quad .5 mL 00:00:00 [facility] 6+ [place] Branch Influenza Virus 2020-04-14 Completed Universit y of Vaccine Quad .5 mL 00:00:00 [facility] 6+ [place] Branch Tdap 2015-07-14 Completed Jew 00:00:00 [facility] 2015-07-14 Completed University 00:00:00 [facility] TDAP 2015-07-14 Completed University 00:00:00 [facility] TDAP 2015-07-14 Completed [facility] 00:00:00 [facility] TDAP 2015-07-14 Completed University of 00:00:00 [facility] Vital Signs Vital Name Observation Time Observation Value Comments Source Systolic blood 2021-08-10 132 mm[Hg] Jew pressure 20:17:00 [facility] Diastolic blood 2021-08-10 82 mm[Hg] Jew pressure 20:17:00 [facility] Heart rate 2021-08-10 60 /min Jew 20:17:00 [facility] Body height 2021-08-10 167.6 cm Jew 20:17:00 [facility] Body weight 2021-08-10 112.492 kg Jew 20:17:00 Hospital BMI 2021-08-10 40.03 kg/m2 Jew 20:17:00 Hospital Systolic (mm Hg) 2020-12-19 [facility] 15:58:00 Diastolic (mm Hg) 2020-12-19 [facility] 15:58:00 Heart Rate 2020-12-19 [facility] Anish n 15:58:00 Height 2020-12-19 167.64 cm [facility] Anish n 15:58:00 Weight 2020-12-19 [facility] Anish n 15:58:00 BMI Calculated 2020-12-19 [facility] guevara 15:58:00 Systolic (mm Hg) 2020-05-30 [facility] 16:14:00 Diastolic (mm Hg) 2020-05-30 [facility] 16:14:00 Heart Rate 2020-05-30 [facility] Anish n 16:14:00 Temperature Oral 2020-05-30 97.5 F [facility] rmann (F) 16:14:00 Height 2020-05-30 167.64 cm [facility] Anish n 16:14:00 Weight 2020-05-30 [facility] Anish n 16:14:00 BMI Calculated 2020-05-30 [facility] guevara 16:14:00 Systolic blood 2020-02-26 123 mm[Hg] Location: [facility] 15:41:00 Position: [place] [facility] Diastolic blood 2020-02-26 81 mm[Hg] Location: [facility] 15:41:00 Position: [place] [facility] Body height 2020-02-26 66 [in_us] [facility] 15:41:00 [place] [facility] Weight 2020-02-26 231.6 [lb_av] [facility] 15:41:00 [place] [facility] Body mass index 2020-02-26 37.38 kg/m2 University o f (BMI) [Ratio] 15:41:00 [place] [facility] Heart Rate 2020-02-26 63 /min Location: R [facility] 15:41:00 Brachial [place] [facility] Artery; Respiratory rate 2020-02-26 16 /min Quality: Normal Universi of 15:41:00 [place] [facility] Systolic (mm Hg) 2019-12-11 [facility] 18:03:00 Diastolic (mm Hg) 2019-12-11 [facility] 18:03:00 Heart Rate 2019-12-11 [facility] Anish n 18:03:00 Temperature Oral 2019-12-11 97.7 F [facility] (F) 18:03:00 Height 2019-12-11 167.64 cm [facility] Anish n 18:03:00 Weight 2019-12-11 [facility] Anish n 18:03:00 BMI Calculated 2019-12-11 [facility] 18:03:00 Systolic (mm Hg) 2019-11-07 [facility] 21:50:00 Diastolic (mm Hg) 2019-11-07 [facility] 21:50:00 Heart Rate 2019-11-07 [facility] 21:50:00 Temperature Oral 2019-11-07 98.1 F [facility] (F) 21:50:00 Height 2019-11-07 167.64 cm [facility] 21:50:00 Weight 2019-11-07 [facility] 21:50:00 BMI Calculated 2019-11-07 [facility] 21:50:00 Respitory Rate 2019-10-06 [facility] 10:52:00 Systolic (mm Hg) 2019-10-06 [facility] 10:52:00 Diastolic (mm Hg) 2019-10-06 [facility] 10:52:00 Temperature Oral 2019-10-06 98.3 F [facility] (F) 10:52:00 Systolic (mm Hg) 2019-10-06 [facility] 09:43:00 Diastolic (mm Hg) 2019-10-06 [facility] 09:43:00 Respitory Rate 2019-10-06 [facility] 09:43:00 Systolic (mm Hg) 2019-10-06 [facility] 09:42:00 Diastolic (mm Hg) 2019-10-06 [facility] H ermann 09:42:00 Respitory Rate 2019-10-06 [facility] 09:[facility]00 Weight 2019-10-06 [facility] 08:28:00 Heart Rate 2019-10-06 [facility] 08:28:00 Temperature Oral 2019-10-06 98.2 F [facility] (F) 08:28:00 Systolic (mm Hg) 2019-07-23 [facility] 20:54:00 Diastolic (mm Hg) 2019-07-23 [facility] 20:54:00 Heart Rate 2019-07-23 [facility] 20:54:00 Temperature Oral 2019-07-23 97.7 F [facility] (F) 20:54:00 Height 2019-07-23 167.64 cm [facility] 20:54:00 Weight 2019-07-23 [facility] 20:54:00 BMI Calculated 2019-07-23 [facility] 20:54:00 Systolic (mm Hg) 2019-05-30 [facility] 20:23:00 Diastolic (mm Hg) 2019-05-30 [facility] 20:23:00 Heart Rate 2019-05-30 [facility] 20:23:00 Temperature Oral 2019-05-30 97.4 F [facility] (F) 20:23:00 Height 2019-05-30 167.64 cm [facility] 20:23:00 Weight 2019-05-30 [facility] 20:23:00 BMI Calculated 2019-05-30 [facility] 20:23:00 Systolic (mm Hg) 2019-05-01 [facility] 14:49:00 Diastolic (mm Hg) 2019-05-01 [facility] 14:49:00 Heart Rate 2019-05-01 [facility] 14:49:00 Temperature Oral 2019-05-01 98.1 F [facility] (F) 14:49:00 Height 2019-05-01 152.4 cm [facility] 14:49:00 Weight 2019-05-01 [facility] 14:49:00 BMI Calculated 2019-05-01 [facility] 14:49:00 Systolic (mm Hg) 2019-04-20 [facility] 15:06:00 Diastolic (mm Hg) 2019-04-20 [facility] 15:06:00 Heart Rate 2019-04-20 [facility] 15:06:00 Temperature Oral 2019-04-20 97.7 F [facility] (F) 15:06:00 Height 2019-04-20 167.64 cm [facility] 15:06:00 Weight 2019-04-20 [facility] 15:06:00 BMI Calculated 2019-04-20 [facility] 15:06:00 BMI Calculated 2018-10-19 [facility] 17:28:00 Height 2018-10-19 167.64 cm [facility] 17:28:00 Weight 2018-10-19 [facility] 17:28:00 Systolic (mm Hg) 2018-10-19 [facility] 17:28:00 Diastolic (mm Hg) 2018-10-19 [facility] Sun ermann 17:28:00 Temperature Oral 2018-10-19 97.8 F [facility] (F) 17:28:00 Heart Rate 2018-10-19 [facility] Pettitan n 17:28:00 BP Systolic 2018-02-21 108 mm[Hg] Location: [facility] 10:58:00 Position: [place] [facility] BP Diastolic 2018-02-21 75 mm[Hg] Location: [facility] 10:58:00 Position: [place] [facility] Height 2018-02-21 66 [in_us] [facility] 10:58:00 [place] [facility] Weight 2018-02-21 252.2 [lb_av] [facility] 10:58:00 [place] [facility] Body Mass Index 2018-02-21 40.71 kg/m2 [facility] Calculated 10:58:00 [place] [facility] Temperature 2018-02-21 98.1 [degF] Method: Oral [facility] 10:58:00 [place] [facility] Heart Rate 2018-02-21 79 /min [facility] 10:58:00 [place] [facility] Respiration Rate 2018-02-21 18 /min [facility] 10:58:00 [place] [facility] Weight 2017-10-20 [facility] 19:30:00 BMI Calculated 2017-10-20 [facility] 19:30:00 Height 2017-10-20 167.64 cm Ava Pettitan n 19:30:00 Heart Rate 2017-10-20 Ava Pettitan n 19:30:00 Temperature Oral 2017-10-20 98.2 F [facility] (F) 19:30:00 Systolic (mm Hg) 2017-10-20 [facility] 19:30:00 Diastolic (mm Hg) 2017-10-20 Ava Sun ermann 19:30:00 BMI Calculated 2017-01-31 [facility] 14:42:00 Weight 2017-01-31 Ava Pettitan n 14:42:00 Height 2017-01-31 167.6 cm [facility] Pettitan n 14:42:00 Procedures Procedure Date / Time Performing Clinician Source Performed INSURANCE CORRESPONDENCE 2021-09-24 05:01:00 Doctor Unassigned, [facility], NG, TRICH VAG BY ERASMO 2021-08-10 23:09:00 Scarlet Angel [facility] Teri HEPATITIS B SURFACE 2021-08-10 20:50[facility] Teri HEPATITIS C ANTIBODY 2021-08-10 20:50:00 Stanley, [facility] Teri HIV 1/2 ANTIGEN/ANTIBODY, 2021-08-10 20:50:00 Scarlet Angel [facility] FOURTH GENERATION W/RFL Teri SYPHILIS RPR SCREEN WITH 2021-08-10 20:50:00 Scarlet Angel [facility] CONFIRMATION (TRADITIONAL Teri ALGORITHM) MAMMO BREAST SCREEN 2021-08-10 19:52:00 Stanley [facility] Teri HEPATITIS C ANTIBODY 2020-09-24 20:47:00 Stanley, [facility] Teri HEPATITIS B SURFACE 2020-09-24 20:47:00 Stanley, [facility] ANTIGEN Teri HIV 1/2 ANTIGEN/ANTIBODY, 2020-09-24 20:47:00 Scarlet Angel [facility] FOURTH GENERATION W/RFL Teri SYPHILIS RPR SCREEN WITH 2020-09-24 20:47:00 Scarlet Angel [facility] CONFIRMATION (TRADITIONAL Teri ALGORITHM) NUSWAB VAGINITIS PLUS 2020-09-24 20:43:00 Stanley Chiu [facility] (VG+) Teri US BREAST RIGHT LIMITED 2020-09-24 19:41:38 [facility] Teri US BREAST COMPLETE LEFT 2020-09-24 19:28:12 [facility] Teri MAMMO BREAST DIAGNOSTIC 2020-09-24 19:09:00 [facility] Teri Date of last 2020-09-01 06:00:00 [facility] mammogram<sup>1</sup> [QL] VITAMIN D, 2020-01-28 00:00:00 [facility] 25-HYDROXY, LC/MS/MS Physicians [QL] TSH, 3RD GENERATION 2020-01-28 00:00:00 [facility] [QL] T4, FREE 2020-01-28 00:00:00 [facility] Physicians [QLH] T4, FREE 2018-02-21 00:00:00 [facility] Physicians [QLH] T3, TOTAL 2018-02-21 00:00:00 [facility] Physicians [QLH] TSH, 3RD GENERATION 2018-02-21 00:00:00 [facility] [QL] VITAMIN D, 2018-02-21 00:00:00 [facility] 25-HYDROXY, LC/MS/MS Physicians Colonoscopy<sup>2</sup> 2016-12-11 05:00:00 Mina Pak History of Bladder [facility] Surgery Physicians History of Oophorectomy - [facility] Unilateral (Removal Of Physician s One Ovary) History of Hand fracture Univers [facility] repair Physicians Bladder [facility] Entire left ovary [facility] nn Hand [facility] [place] Hysterectomy [facility] Plan of Care Planned Activity Planned Date Details Comments Source Future Scheduled 2021-08-24 COVID-19 VACCINE (1) Met [facility] Test 13:43:52 [code = COVID-19 VACCINE (1)] Future Scheduled 2021-08-24 COLONOSCOPY SCREENING [facility] Test 13:43:52 [code = COLONOSCOPY SCREENING] Future Scheduled 2021-08-24 SHINGLES VACCINES [facility] Test 13:43:52 (#1) [code = SHINGLES VACCINES (#1)] Future Scheduled 2021-08-24 INFLUENZA VACCINE [facility] Test 13:43:52 [code = INFLUENZA VACCINE] Future Scheduled 2021-08-24 Screening for [facility] Test 13:43:52 malignant neoplasm of cervix (procedure) [code = 154987730] Future Scheduled 2021-08-24 BREAST CANCER [facility] Test 13:43:52 SCREENING [code = BREAST CANCER SCREENING] Encounters Start End Encounter Admission Attending Care Care Encounter Source Date/Time Date/Time Type Type Clinicians Facility Department ID 2021-05-04 Outpatient [facility] [id number] [place] 12:31:42 Critical access hospital 2020-11-08 Outpatient [facility] [id number] [place] 03:27:26 Critical access hospital 2021-10-27 2021-10-27 Outpatient R [facility] [id number] Univers 17:40:00 17:40:00 [id number] ity [facility] 2021-10-27 2021-10-27 Outpatient R TERESITA [facility] [id number] Univers 17:40:00 17:40:00 SITA ity [facility] 2021-10-13 2021-10-13 Telephone Adrián [facility] 1.2.840.114 [id number] Univers 00:00:00 00:00:00 Axel Udacity 350.1.13.10 it y of Edward [facility] 4.2.7.2.686 Terry as FRANCO?BLEA [id number] [address] MEDICAL OFFICE [facility] 2021-09-28 2021-09-28 Telephone Hong [facility] [id number] Univers 00:00:00 00:00:00 Diane HEALTH 350.1.13.10 it y of [place] 4.2.7.2.686 Terry as FRANCO?BLEA [phone] [address] MEDICAL OFFICE [facility] 2021-09-24 2021-09-24 Orders Doctor MIRI 1.2.840.114 [id number] [facility] 00:00:00 00:00:00 Only Unassigned, ALLIE 350.1.13.10 ity of [place] [facility] 4.2.7.2.686 Terry as [id number] [address] 2021-09-22 2021-09-22 Telephone Jaycob Camilo 1.2.840.11 4 [id number] [place] 00:00:00 00:00:00 Jaycob Camilo 350.1.13.58 Health MEDICAL 9.2.7.2.686 [place] [id number] 0 2021-09-09 2021-09-09 Telephone Hong [facility] [id number] [id number] [facility] 00:00:00 00:00:00 Diane HEALTH 350.1.13.10 it y of [place] 4.2.7.2.686 Terry as FRANCO?BLEA [id number] [address] MEDICAL OFFICE BUILDING 2021-08-10 2021-08-10 [facility], 1.2.840.1 [id number] Methodi 14:07:28 15:20:00 Visit Chiu 08485.1.[address] Teri 3.430.2.7 Hospi ta .3.561119 l .8 2021-08-10 2021-08-10 [facility], 1.2.840.1 [id number] [place] 00:00:00 00:00:00 Encounter CHIU 70394.1.1 [id number] .3.954491 .8 2021-08-10 2021-08-10 Travel 1.2.840.1 1.2.568.234 [id number] Methodi 00:00:00 00:00:[address] 3.430.2.7 0.2.7.3.698 Ho spita .3.960966 084.8 l .8 2021-06-22 2021-06-22 Travel 1.2.840.1 1.2.981.081 [id number] Methodi 00:00:00 00:00:[address] 3.430.2.7 0.2.7.3.698 Ho spita .3.770473 084.8 l .8 2021-06-16 2021-06-16 Telephone [facility], 1.2.840.1 [id number] 2 [id number] Methodi 00:00:00 00:00:[address] Teri 3.430.2.7 Hospi ta .3.283410 l .8 2021-05-14 2021-05-14 Telephone Yuliyakristy, [facility] 1.2.066.290 [id number] [place] 00:00:00 00:00:00 Emeka GOODEN 350.1.13.58 H [facility] 9.2.7.2.686 [facility] [phone] 4 2021-05-12 2021-05-12 Telephone Neda Horne [place] 1.2.840.11 4 [id number] [place] 00:00:00 00:00:00 Neda Horne 350.1.13.58 Health MEDICAL 9.2.7.2.686 [place] [id number] [id number] 2021-05-11 2021-05-11 Orders MARQUEZ Tolbert 1.2.840.114 [id number] [place] 00:00:00 00:00:00 Only Emeka GOODEN 350.1.13.58 H ealth MEDICAL 9.2.7.2.686 [facility] [id number] 4 2021-05-11 2021-05-11 Telephone Rossana Dalton [facility] 1.2.8 40.114 [id number] [place] 00:00:00 00:00:00 Rossana Dalton 350.1.13.5 8 Health MEDICAL 9.2.7.2.686 [facility] [phone] 4 2021-04-27 2021-04-27 Orders AshleeMARQUEZ bradshaw 1.2.840.114 [id number] [place] 00:00:00 00:00:00 Only Emeka GOODEN 350.1.13.58 H ealth MEDICAL 9.2.7.2.686 [facility] [id number] 4 2021-04-23 2021-04-23 Telephone Cristel Claudio [place] 1.2.840.1 14 [id number] [place] 00:00:00 00:00:00 Cristel Claudio 350.1.13.58 Health MEDICAL 9.2.7.2.686 [place] [id number] [id number] 2021-04-21 2021-04-21 Telephone MARQUEZ Tolbert 1.2.322.584 [id number] [place] 00:00:00 00:00:00 Emeka GOODEN 350.1.13.58 H ealth MEDICAL 9.2.7.2.686 [facility] [id number] 4 2021-02-24 2021-02-24 Travel 1.2.840.1 1.2.125.725 [id number] Methodi 00:00:00 00:00:[address] 3.430.2.7 0.2.7.3.698 Ho spita .3.554719 084.8 l .8 2021-02-17 2021-02-18 Between nullFlavo [facility] [id number] Memoria 22:12:59 22:12:59 Visit r Primary 54 l [facility] 2021-02-17 2021-02-18 Between nullFlavo [facility] [id number] Memoria 22:12:59 22:12:59 Visit r Primary 54 l [facility] 2021-02-05 2021-02-07 Phone nullFlavo [facility] [id number] Memoria 17:02:25 04:59:59 Message r Primary 15 [facility] 2021-02-05 2021-02-07 Phone nullFlavo MG [id number] Memoria 17:02:25 04:59:59 Message r Primary 15 [facility] 2021-02-02 2021-02-03 Between nullFlavo [facility] [id number] Memoria 13:33:11 13:33:11 Visit r Primary 52 l [facility] 2021-02-02 2021-02-03 Between nullFlavo [facility] [id number] Memoria 13:33:11 13:33:11 Visit r Primary 52 [facility] 2021-01-28 2021-01-29 Between nullFlavo [facility]MG [id number] Memoria 18:18:57 18:18:57 Visit r Primary 51 [facility] 2021-01-28 2021-01-29 Between nullFlavo [facility] [id number] Memoria 18:18:57 18:18:57 Visit r Primary 51 [facility] 2021-01-16 2021-01-16 Telephone Shelby Mercedes 1.2.840 .114 [id number] [place] 00:00:00 00:00:00 Shelby Mercedes 350.1.13.58 Health MEDICAL 9.2.7.2.686 [place] [id number] 2021-01-16 2021-01-16 Telephone Shelby Mercedes 1.2.840 .114 [id number] [place] 00:00:00 00:00:00 Shelby Mercedes 350.1.13.58 [facility] 9.2.7.2.686 [place] [id number] 2021-01-05 2021-01-05 Ambulatory nullFlavo MHMG [id number] Memoria 15:45:00 15:45:00 Pre-Reg r Primary 20 l [facility] 2021-01-05 2021-01-05 Outpatient MHIE MHIE [id number] Memoria 10:45:00 10:45:00 20 [facility] 2020-12-28 2020-12-29 Between nullFlavo [facility] [id number] Memoria 20:07:55 20:07:55 Visit r Primary 50 l [facility] 2020-12-28 2020-12-29 Between nullFlavo MHMG [id number] Memoria 20:07:55 20:07:55 Visit r Primary 50 l [facility] 2020-12-27 2020-12-28 Between nullFlavo MG [id number] Memoria 16:53:06 16:53:06 Visit r Primary 49 l [facility] 2020-12-27 2020-12-28 Between nullFlavo MHMG [id number] Memoria 16:53:06 16:53:06 Visit r Primary 49 l [facility] 2020-12-22 2020-12-23 Between nullFlavo MHMG [id number] Memoria 19:20:35 19:20:35 Visit r Primary 48 l [facility] 2020-12-22 2020-12-23 Between nullFlavo MHMG [id number] Memoria 19:20:35 19:20:35 Visit r Primary 48 l [facility] 2020-12-19 2020-12-20 Outpatient nullFlavo [facility] [id number] Memoria 15:45:00 04:59:59 r Primary 19 l [facility] 2020-12-19 2020-12-19 Outpatient MHIE MHIE [id number] Memoria 10:45:00 10:45:00 19 [facility] 2020-10-21 2020-10-21 Ambulatory nullFlavo [facility] [id number] Memoria 21:15:00 21:15:00 Pre-Reg r Primary 18 [facility] 2020-10-21 2020-10-21 Outpatient [facility] [id number] Memoria 16:15:00 16:15:00 18 [facility] 2020-10-20 2020-10-21 Between nullFlavo [facility] [id number] Memoria 12:34:47 12:34:47 Visit r Primary 47 l [facility] 2020-10-20 2020-10-21 Between nullFlavo [facility] [id number] Memoria 12:34:47 12:34:47 Visit r Primary 47 l [facility] 2020-10-07 2020-10-08 Between nullFlavo [facility] [id number] Memoria 17:38:20 17:38:20 Visit r Primary 46 l [facility] 2020-10-07 2020-10-08 Between nullFlavo [facility] [id number] Memoria 17:38:20 17:38:20 Visit r Primary 46 [facility] 2020-09-24 2020-09-24 [facility], 2.840.1 [id number] Methodi 14:40:49 23:59:00 Encounter Chiu 29036.1.[address] Teri 3.430.2.7 Hospi ta .3.653302 l .8 2020-09-24 2020-09-24 [facility], .2.840.1 [id number] Methodi 14:46:14 16:36:05 Visit Chiu 75906.1.[address] Teri 3.430.2.7 Hospi ta .3.092939 l .8 2020-09-24 2020-09-24 [facility], 1.2.840.1 [id number] 21 [id number] Methodi 13:31:35 14:39:00 Encounter Chiu 05236.1.[address] Teri 3.430.2.7 Hospi ta .3.051767 l .8 2020-09-24 2020-09-24 [facility], .2.840.1 [id number] Methodi 13:09:26 13:30:00 Encounter Chiu 08077.1.[address] Teri 3.430.2.7 Hospi ta .3.688751 l .8 2020-09-24 2020-09-24 Travel 1.2.840.1 1.2.174.823 [id number] Methodi 00:00:00 00:00:[address] 3.430.2.7 0.2.7.3.698 Ho spita .3.898331 084.8 l .8 2020-09-03 2020-09-05 Phone nullFlavo MG [id number] Memoria 20:14:43 05:59:59 Message r Primary 14 [facility] 2020-09-03 2020-09-05 Phone nullFlavo MG [id number] Memoria 20:14:43 05:59:59 Message r Primary 14 [facility] 2020-06-03 2020-06-04 Between nullFlavo MG [id number] Memoria 18:57:16 18:57:16 Visit r Primary 44 [facility] 2020-06-03 2020-06-04 Between nullFlavo MG [id number] Memoria 18:57:16 18:57:16 Visit r Primary 44 [facility] 2020-05-30 2020-05-31 [place] [id number] Memoria 16:00:00 05:59:59 r Primary 17 [facility] 2020-05-30 2020-05-30 Outpatient MHIE MHIE [id number] Memoria 10:00:00 10:00:00 17 [facility] 2020-04-02 2020-04-03 Between nullFlavo MG [id number] Memoria 15:04:15 15:04:15 Visit r Primary 43 [facility] 2020-04-02 2020-04-03 Between nullFlavo MG [id number] Memoria 15:04:15 15:04:15 Visit r Primary 43 [facility] 2020-03-21 2020-03-22 Between nullFlavo MG [id number] Memoria 13:29:53 13:29:53 Visit r Primary 42 [facility] 2020-03-21 2020-03-22 Between nullFlavo [facility] [id number] Memoria 13:29:53 13:29:53 Visit r Primary 42 [facility] 2020-03-03 2020-03-05 Phone nullFlavo MG [id number] Memoria 18:35:37 04:59:59 Message r Primary 13 [facility] 2020-03-03 2020-03-05 Phone nullFlavo MG [id number] Memoria 18:35:37 04:59:59 Message r Primary 13 [facility] 2020-02-26 2020-02-26 AppointMARQUEZ Delgado [facility] [id number] [facility] 15:45:00 15:45:00 t; EMEKA TOLBERT M.D. lty - ity of [place] HENDRICKSON M.D. Physici ans 2019-12-16 2019-12-17 Between nullFlavo MG [id number] Memoria 18:59:17 18:59:17 Visit r Primary 40 [facility] 2019-12-11 2019-12-12 [place] [id number] Memoria 18:00:00 04:59:59 r Primary 16 [facility] 2019-12-11 2019-12-11 Outpatient MHIE IE [id number] Memoria 13:00:00 13:00:00 16 [facility] 2019-11-09 2019-11-10 Between nullFlavo MG [id number] Memoria 13:27:00 13:27:00 Visit r Primary 39 [facility] 2019-11-07 2019-11-08 Between nullFlavo [facility] [id number] Memoria 19:12:08 19:12:08 Visit r Primary 38 [facility] 2019-11-07 2019-11-08 Between nullFlavo [facility] [id number] Memoria 12:03:26 12:03:26 Visit r Primary 37 [facility] 2019-11-07 2019-11-08 Between nullFlavo MG [id number] Memoria 12:03:26 12:03:26 Visit r Primary 37 l [facility] 2019-11-07 2019-11-08 Outpatient nullFlavo [facility] [id number] Memoria 21:30:00 04:59:59 r Primary 15 l [facility] 2019-11-07 2019-11-07 Ambulatory nullFlavo [facility] [id number] Memoria 21:30:00 21:30:00 Pre-Reg r Primary 14 l [facility] 2019-11-07 2019-11-07 Ambulatory nullFlavo [facility] [id number] Memoria 21:30:00 21:30:00 Pre-Reg r Primary 13 [facility] 2019-11-07 2019-11-07 Outpatient MHIE IE [id number] Memoria 16:30:00 16:30:00 14 [facility] 2019-11-07 2019-11-07 Outpatient MHIE MHIE [id number] Memoria 16:30:00 16:30:00 15 [facility] 2019-10-06 2019-10-06 Emergency nullFlavo [facility] [id number] Memoria 08:14:37 11:31:00 r [place] 35 l [facility] 2019-10-06 2019-10-06 Emergency nullFlavo [facility] [id number] Memoria 08:14:37 11:31:00 r [place] 35 l [facility] 2019-10-06 2019-10-06 Emergency E FAD[place], MHBL BL 7535 MHBL 03:14:00 06:31:00 [facility] 2019-07-25 2019-07-26 Between nullFlavo [facility] [id number] Memoria 04:13:16 04:13:16 Visit r Primary 34 l [facility] 2019-07-25 2019-07-26 Between nullFlavo [facility] [id number] Memoria 04:13:16 04:13:16 Visit r Primary 34 [facility] 2019-07-24 2019-07-25 Between nullFlavo MG [id number] Memoria 15:51:13 15:51:13 Visit r Primary 33 [facility] 2019-07-23 2019-07-24 Outpatient nullFlavo [facility] [id number] Memoria 21:00:00 05:59:59 r Primary 12 [facility] 2019-07-17 2019-07-18 Between nullFlavo [facility] [id number] Memoria 15:40:28 15:40:28 Visit r Primary 31 [facility] 2019-06-02 2019-06-03 Between nullFlavo [facility] [id number] Memoria 20:02:11 20:02:11 Visit r Primary 30 [facility] 2019-06-02 2019-06-03 Between nullFlavo [facility] [id number] Memoria 20:02:11 20:02:11 Visit r Primary 30 [facility] 2019-06-02 2019-06-03 Between nullFlavo MHMG [id number] Memoria 17:31:54 17:31:54 Visit r Primary 29 [facility] 2019-06-02 2019-06-03 Between nullFlavo MHMG [id number] Memoria 17:31:54 17:31:54 Visit r Primary 29 [facility] 2019-05-30 2019-05-31 [place] [id number] Memoria 20:30:00 05:59:59 r Primary 11 [facility] 2019-05-27 2019-05-28 Between nullFlavo MG [id number] Memoria 20:41:40 20:41:40 Visit r Primary 27 [facility] 2019-05-27 2019-05-28 Between nullFlavo MG [id number] Memoria 20:41:40 20:41:40 Visit r Primary 27 [facility] 2019-05-07 2019-05-08 Between nullFlavo MG [id number] Memoria 12:59:09 12:59:09 Visit r Primary 26 [facility] 2019-05-07 2019-05-08 Between nullFlavo [facility] [id number] Memoria 12:59:09 12:59:09 Visit r Primary 26 [facility] 2019-05-04 2019-05-05 Between nullFlavo [facility] [id number] Memoria 12:12:24 12:12:24 Visit r Primary 25 [facility] 2019-05-04 2019-05-05 Between nullFlavo [facility] [id number] Memoria 12:12:24 12:12:24 Visit r Primary 25 [facility] 2019-05-03 2019-05-04 Between nullFlavo MG [id number] Memoria 23:09:07 23:09:07 Visit r Primary 24 [place] [facility] 2019-05-03 2019-05-04 Between nullFlavo MH[facility] [id number] Memoria 23:09:07 23:09:07 Visit r Primary 24 [facility] 2019-05-02 2019-05-03 Between nullFlavo MG [id number] Memoria 16:41:28 16:41:28 Visit r Primary 23 [place] [facility] 2019-05-01 2019-05-02 [place] [id number] Memoria 14:30:00 04:59:59 r Primary 10 [place] [facility] 2019-05-01 2019-05-01 Outpatient MHIE MHIE [id number] Memoria 09:30:00 09:30:00 10 petty [place] 2019-04-23 2019-04-24 Between nullFlavo MG [id number] Memoria 21:58:51 21:58:51 Visit r Primary 21 [facility] 2019-04-23 2019-04-24 Between nullFlavo MG [id number] Memoria 01:13:00 01:13:00 Visit r Primary 20 [facility] 2019-04-23 2019-04-24 Between nullFlavo MG [id number] Memoria 01:13:00 01:13:00 Visit r Primary 20 [place] [facility] 2019-04-20 2019-04-21 [place] [id number] Memoria 15:00:00 04:59:59 r Primary 09 [place] [facility] 2019-04-20 2019-04-20 [place] [id number] Memoria 20:45:00 20:45:00 Pre-Reg r Primary 08 [facility] 2019-04-20 2019-04-20 Outpatient MHIE MHIE [id number] Memoria 15:45:00 15:45:00 08 [place] 2019-04-20 2019-04-20 Outpatient MHIE MHIE [id number] Memoria 10:00:00 10:00:00 09 [place] 2019-03-09 2019-03-10 Outpt Diag nullFlavo [facility] [id number] Memoria 18:29:00 04:59:00 Services r Outpatient 02 [facility] 2019-03-09 2019-03-10 Outpt Diag nullFlavo [facility] [id number] Memoria 18:29:00 04:59:00 Services r [facility] [facility] 2018-10-25 2018-10-26 Between nullFlavo [facility] [id number] Memoria 14:13:24 14:13:24 Visit r Primary 18 [facility] 2018-10-25 2018-10-26 Between nullFlavo [facility] [id number] Memoria 14:13:24 14:13:24 Visit r Primary 18 [facility] 2018-10-19 2018-10-20 Between nullFlavo [facility] [id number] Memoria 22:19:42 22:19:42 Visit r Primary 17 [facility] 2018-10-19 2018-10-20 Between nullFlavo [facility] [id number] Memoria 22:19:42 22:19:42 Visit r Primary 17 [facility] 2018-10-19 2018-10-20 Outpatient nullFlavo [facility] [id number] Memoria 18:00:00 04:59:59 r Primary 07 [facility] 2018-10-19 2018-10-20 Outpt Diag nullFlavo [facility] [id number] Memoria 19:07:00 04:59:00 Services r Outpatient 01 [facility] 2018-10-19 2018-10-20 Outpt Diag nullFlavo [facility] [id number] Memoria 19:07:00 04:59:00 Services r Outpatient 01 [facility] 2018-09-29 2018-10-01 Phone nullFlavo [facility] [id number] Memoria 13:43:00 04:59:59 Message r Primary 12 [facility] 2018-09-29 2018-10-01 Phone nullFlavo [facility] [id number] Memoria 13:43:00 04:59:59 Message r Primary 12 [facility] 2018-09-29 2018-09-30 Between nullFlavo [facility] [id number] Memoria 14:01:37 14:01:37 Visit r Primary 15 l [facility] 2018-09-29 2018-09-30 Between nullFlavo MG [id number] Memoria 14:01:37 14:01:37 Visit r Primary 15 l [facility] 2018-04-05 2018-04-07 Phone nullFlavo [facility] [id number] Memoria 20:43:00 04:59:59 Message r Primary 11 l [facility] 2018-04-05 2018-04-07 Phone nullFlavo [facility] [id number] Memoria 20:43:00 04:59:59 Message r Primary 11 l [facility] 2018-02-21 2018-02-21 Appointmen MARQUEZ TOLBERT [id number] 10:30:00 10:30:00 t; EMEKA TOLBERT M.D. Located Within [facility] 2017-11-16 2017-11-18 Phone nullFlavo MG [id number] Memoria 12:49:00 04:59:59 Message r Primary 10 l [facility] 2017-11-16 2017-11-18 Phone nullFlavo MG [id number] Memoria 12:49:00 04:59:59 Message r Primary 10 l [facility] 2017-10-21 2017-10-23 Phone nullFlavo MG [id number] Memoria 20:53:00 04:59:59 Message r Primary 08 l [facility] 2017-10-21 2017-10-23 Phone nullFlavo MG [id number] Memoria 20:53:00 04:59:59 Message r Primary 08 l [facility] 2017-10-20 2017-10-21 [place] [id number] Memoria 20:00:00 04:59:59 r Primary 06 [facility] 2017-10-20 2017-10-20 Outpatient MHIE MHIE [id number] Memoria 15:00:00 15:00:00 06 petty [place] 2017-09-15 2017-09-17 Phone nullFlavo [facility] [id number] Memoria 13:38:00 04:59:59 Message r Primary 07 l [facility] 2017-09-15 2017-09-17 Phone nullFlavo [facility] [id number] Memoria 13:38:00 04:59:59 [facility] 2017-07-28 2017-07-30 Phone nullFlavo [facility] [id number] Memoria 22:14:00 05:59:59 Message r Primary 06 l [facility] 2017-07-28 2017-07-30 Phone nullFlavo [facility] [id number] Memoria 22:14:00 05:59:59 Message r Primary 06 l [facility] 2017-01-31 2017-02-01 Outpt Diag nullFlavo [facility] [id number] Memoria 14:22:00 04:59:00 Services r Outpatient 00 l [facility] [place] 2017-01-21 2017-01-21 Outpatient MHIE IE [id number] Memoria 14:30:00 14:30:00 05 petty [place] 2017-01-07 2017-01-07 Outpatient MHIE MHIE [id number] Memoria 15:30:00 15:30:00 04 petty [place] 2017-01-07 2017-01-07 Outpatient MHIE MHIE [id number] Memoria 15:30:00 15:30:00 04 petty [place] 2016-12-29 2016-12-29 Outpatient MHIE MHIE [id number] Memoria 08:30:00 08:30:00 03 petty [place] 2016-12-29 2016-12-29 Outpatient MHIE MHIE [id number] Memoria 08:30:00 08:30:00 03 petty [place] 2016-03-13 2016-03-13 Outpatient MHIE MHIE [id number] Memoria 13:00:00 13:00:00 02 petty [place] 2015-06-01 2015-06-01 Outpatient MHIE MHIE [id number] Memoria 14:30:00 14:30:00 01 petty [place] 2015-01-17 2015-01-17 Outpatient MHIE MHIE [id number] Memoria 08:00:00 08:00:00 00 petty Pak Results Test Description Test Time Test Comments Results Result Comments Source Ct, Ng, Trich vag by ERASMO 2021-08-13 02:35:00 Test Item Value Reference Range Interpretation Comme nts Chlamydia trachomatis, ERASMO (test code Negative Negative = 01482-0) Gonococcus by nucleic acid amp (test Negative Negative code = 55191-7) Trichomonas vaginalis, TMA result Negative Negative (test code = 85647-5) THAO (test code = THAO) Performed at: - [address] [id number] Director: Ovidio Palencia MD, Phone: [phone] [facility] B surface [id number] 14:11:00 Test Item Value Reference Range Interpretation Comments Hepatitis B surface Ag Negative Negative (test code = 5196-1) THAO (test code = THAO) Performed at: - [address] [id number] Director: Ovidio Palencia MD, Phone: [phone] [facility] C [id number] 14:11:00 Test Item Value Reference Range Interpretation Comments Hepatitis C Ab <0.1 See_Comment (test code = 97910-5) Negative: < 0.8 Indetermi christopher: 0.8 - 0.9 Positive: > 0.9 The CDC recomme nds that a positive HCV antibody result be followed up wit h a HCV Nucleic Aci d Amplification t est (148975). [Automated mess age] The system [facility] generated this result transmit tia reference range : 0.0 - 0.9 s/co rati o. The reference r nadya was not used to interpret this result as normal/abnormal . THAO (test code = Performed at: THAO) - [address] [id number] Director: Ovidio Palencia MD, Phone: [phone] [facility] ANTIGEN/ANTIBODY, FOURTH GENERATION [id number] 10:08:00 Test Item Value Reference Range Interpretation Comments HIV AG/AB 4th Non Reactive Non Reactive HIV gen (test code NegativeHIV-1 /HIV-2 = 04524-3) antibodies and HIV-1 p24 antigen wer e NOT detected.There is no laboratory evid ence of HIV infectio n. THAO (test code Performed at: - = THAO) [address] [id number] Director: Ovidio Palencia MD, Phone: [phone] [facility] with confirmation (traditional algorithm) 2021-08-11 09:07:00 Test Item Value Reference Range Interpretation Comments RPR (test code = Non Reactive Non Reactive ) THAO (test code = Performed at: 01 - THAO) [facility] [address] [place], [place] [id number] Director: Ovidio Palencia MD, Phone: [phone] [facility] HospitalBlcyaetcMWSZOX9823-54-11 17:10:00 Test Item Value Reference Range Interpretation Comments Trig (test code = Trig) 66 [id number] 17:10:00 Test Item Value Reference Range Interpretation Comments LDL (Calculated) (test code = LDL 87 (Calculated)) [facility]XyrgfqrXZKTNQ4769-74-84 17:10:00 Test Item Value Reference Range Interpretation Comments CHD Risk (test code = CHD Risk) 2.4 [facility]roeNjixyyvFSZTUV2874-68-21 17:10:00 Test Item Value Reference Range Interpretation Comments Non HDL Chol (test code = Non HDL Chol) 102 [facility]annMOLECULAR [id number] 17:10:00 Test Item Value Reference Range Interpretation Comments C trachomatis by ERASMO (test code NOT DETECTED = C trachomatis by ERASMO) [facility]annMOLECULAR [id number] 17:10:00 Test Item Value Reference Range Interpretation Comments N gonorrhea by ERASMO (test code = NOT DETECTED N gonorrhea by ERASMO) [facility]annSPECIAL [id number] 17:10:00 Test Item Value Reference Range Interpretation Comments Hgb A1C (test code = Hgb A1C) 5.0 [facility]INE [id number] 17:10:00 Test Item Value Reference Range Interpretation Comments U Creat mg/dL (test code = U Creat 189 20-275 mg/dL) [facility] [id number] 17:10:00 Test Item Value Reference Range Interpretation Comments U Alb (test code = U Alb) 0.4 [facility] [id number] 17:10:00 Test Item Value Reference Range Interpretation Comments U Alb/Crea (test code = U Alb/Crea) 2 [facility]annCHEM [id number] 17:10:00 Test Item Value Reference Range Interpretation Comments Vitamin D, 25-OH, Total (test code = 26 30-100 Vitamin D, 25-OH, Total) [place] 263721-06-18 17:10:00 Test Item Value Reference Range Interpretation Comments Glucose Lvl (test code = Glucose Lvl) 90 65-99 [place] 263721-06-18 17:10:00 Test Item Value Reference Range Interpretation Comments BUN (test code = BUN) 13 7-25 [place] 263721-06-18 17:10:00 Test Item Value Reference Range Interpretation Comments Creatinine Lvl (test code = Creatinine 0.74 0.50-1.05 Lvl) [facility]2021-06-18 17:10:00 Test Item Value Reference Range Interpretation Comments eGFR NON-AFR. BERMUDIAN (test code = 91 eGFR NON-AFR. BERMUDIAN) [facility]2021-06-18 17:10:00 Test Item Value Reference Range Interpretation Comments eGFR (test code = eGFR 106 ) [facility]2021-06-18 17:10:00 Test Item Value Reference Range Interpretation Comments B/C Ratio (test code = B/C NOT APPLICABLE 6-22 Ratio) [facility]roeChaordixDUKE [id number] 17:10:00 Test Item Value Reference Range Interpretation Comments Sodium Lvl (test code = Sodium Lvl) 140 135-146 [facility]2021-06-18 17:10:00 Test Item Value Reference Range Interpretation Comments Potassium Lvl (test code = Potassium 4.6 3.5-5.3 Lvl) [facility]roeChaordixDUKE [id number] 17:10:00 Test Item Value Reference Range Interpretation Comments Chloride Lvl (test code = Chloride Lvl) 105 98-110 [place] 263721-06-18 17:10:00 Test Item Value Reference Range Interpretation Comments CO2 (test code = CO2) 29 20-32 [place] 263721-06-18 17:10:00 Test Item Value Reference Range Interpretation Comments Calcium Lvl (test code = Calcium Lvl) 8.9 8.6-10.4 [facility]2021-06-18 17:10:00 Test Item Value Reference Range Interpretation Comments Total Protein (test code = Total 6.8 6.1-8.1 Protein) [place] 263721-06-18 17:10:00 Test Item Value Reference Range Interpretation Comments Albumin Lvl (test code = Albumin Lvl) 4.0 3.6-5.1 [place] 263721-06-18 17:10:00 Test Item Value Reference Range Interpretation Comments Globulin (test code = Globulin) 2.8 1.9-3.7 [place] 263721-06-18 17:10:00 Test Item Value Reference Range Interpretation Comments A/G Ratio (test code = A/G Ratio) 1.4 1.0-2.5 [place] 263721-06-18 17:10:00 Test Item Value Reference Range Interpretation Comments Bili Total (test code = Bili Total) 0.4 0.2-1.2 [place] 263721-06-18 17:10:00 Test Item Value Reference Range Interpretation Comments Alk Phos (test code = Alk Phos) 66 37-153 [place] 263721-06-18 17:10:00 Test Item Value Reference Range Interpretation Comments ASPARTATE TRANSAMINASE (test code = 11 10-35 ASPARTATE TRANSAMINASE) [place] 263721-06-18 17:10:00 Test Item Value Reference Range Interpretation Comments ALANINE AMINOTRANSFERASE (test code = 11 6-29 ALANINE AMINOTRANSFERASE) [place] 233051-06-18 17:10:00 Test Item Value Reference Range Interpretation Comments Hep Bs Ag (test code = Hep Bs NON-REACTIVE Ag) [id number] 17:10:00 Test Item Value Reference Range Interpretation Comments Hep C Ab (test code = Hep C Ab) NON-REACTIVE [place] 233051-06-18 17:10:00 Test Item Value Reference Range Interpretation Comments Hep Signal to Cut-Off (test code = Hep 0.01 1 Signal to Cut-Off) [place] 192151-06-18 17:10:00 Test Item Value Reference Range Interpretation Comments Chol (test code = Chol) 174 [facility] ParkwayZuydgdmEZHMUP0507-88-96 17:10:00 Test Item Value Reference Range Interpretation Comments HDL (test code = HDL) 72 [place] 192151-06-18 17:10:00 Test Item Value Reference Range Interpretation Comments Trig (test code = Trig) 66 [place] 192151-06-18 17:10:00 Test Item Value Reference Range Interpretation Comments LDL (Calculated) (test code = LDL 87 (Calculated)) [facility] UptownQwaayvnTCTMEZ4479-90-74 17:10:00 Test Item Value Reference Range Interpretation Comments CHD Risk (test code = CHD Risk) 2.4 [facility] UptownVentzanMPHNLV3111-26-71 17:10:00 Test Item Value Reference Range Interpretation Comments Non HDL Chol (test code = Non HDL Chol) 102 [facility] [id number] 17:10:00 Test Item Value Reference Range Interpretation Comments C trachomatis by ERASMO (test code NOT DETECTED = C trachomatis by ERASMO) [facility] [id number] 17:10:00 Test Item Value Reference Range Interpretation Comments N gonorrhea by ERASMO (test code = NOT DETECTED N gonorrhea by ERASMO) [facility] [id number] 17:10:00 Test Item Value Reference Range Interpretation Comments Hgb A1C (test code = Hgb A1C) 5.0 [facility] [id number] 17:10:00 Test Item Value Reference Range Interpretation Comments U Creat mg/dL (test code = U Creat 189 20-275 mg/dL) [facility] [id number] 17:10:00 Test Item Value Reference Range Interpretation Comments U Alb (test code = U Alb) 0.4 [facility]2021-06-18 17:10:00 Test Item Value Reference Range Interpretation Comments U Alb/Crea (test code = U Alb/Crea) 2 [facility] Vaginitis Plus (VG+)2020-09-30 22:35:00 Test Item Value Reference Interpretation Comments Range Atopobium Low - 0 Score vaginae (test code = 22158-2) BVAB 2 (test Low - 0 Score code = 49684-0) Megasphaera Low - 0 Score Calculate total score by species (test adding the 3 i ndividual code = bacterialvagino sis (BV) 17462-4) marker scores t ogether. Total score tristan nterpreted as follows:Tota l score 0-1: Indicates the a bsence of BV.Total score 2: Indeterminate f or BV. Additional clin ical data sh ould be evaluated to es tablish a diagnosis.Total score 3-6: Indicates the p resence of BV.This test wa s developed and its perform ance characteristics determined by [facility]. It has not been cleared or approvedby the Food and Dr ug Administration. Adelina Negative Negative albicans, ERASMO (test code = 06118-4) C. glabrata, Negative Negative DNA (test code = 80747-8) Trichomonas Negative Negative vaginalis, TMA result (test code = 21226-9) Chlamydia Negative Negative trachomatis, ERASMO (test code = 03015-5) Neisseria Negative Negative gonorrhoeae, ERASMO (test code = 70554-1) THAO (test code Test(s) = THAO) 667267-Ciuevhv albicans, ERASMO; 211346-Yrrzfnc glabrata, NAAwas developed and its performance characteristics determinedby [facility]. It has not been cleared or approved by the Foodand Drug Administration.Per formed at: Lab[address] [id number] Director: Ye Alcala MD, Phone: [phone] [facility] [id number] 16:28:00 Test Item Value Reference Range Interpretation Comments T vaginalis by Amp Det(APTIMA) NOT DETECTED (test code = T vaginalis by Amp Det(APTIMA)) [facility] [id number] 16:28:00 Test Item Value Reference Range Interpretation Comments T vaginalis by Amp Det(APTIMA) NOT DETECTED (test code = T vaginalis by Amp Det(APTIMA)) [facility][QL] T4, [id number] 13:18:00 Test Item Value Reference Range Interpretation Comments T4,Free(Direct) (test code = 1.49 ng/dL 0.82-1.77 3024-7) [facility][QL] TSH, 3RD [id number] 13:18:00 Test Item Value Reference Range Interpretation Comments TSH (test code = 38143-6) 2.240 {uIU/mL} 0.450-4.500 [facility][L] 25-Hydroxyvitamin D LCMS D2+[id number] 13:18:00 Test Item Value Reference Range Interpretation Comments 25-Hydroxy, 32 ng/mL Reference Range :All Ages: Vitamin D Target levels 3 0 - 100 (test code = 27777-8) 25-Hydroxy, 16 ng/mL This test was d eveloped and its Vitamin D-2 performance (test code = [place] [address]-7) [facility]. It has not been cleared or appr ovedby the Food and Drug Admini stration. 25-Hydroxy, 16 ng/mL This test was d eveloped and its Vitamin D-3 performance (test code = characteristics determined by 1989-) [facility]. It has not been cleared or appr ovedby the Food and Drug Admini stration. [facility] LuppcoyhtnUOJJQDFTAN8809-77-67 18:48:00 Test Item Value Reference Range Interpretation Comments EBV VCA IgM (test code = EBV VCA IgM) no gt [facility] EgzcsdsVXMWZMYTIY5318-32-97 18:48:00 Test Item Value Reference Range Interpretation Comments EBV VCA IgG (test code = EBV VCA IgG) no gt [facility] DklpsvqBZULWMHOBF7535-21-01 18:48:00 Test Item Value Reference Range Interpretation Comments EBV NA IgG (test code = EBV NA IgG) 25.60 [facility]roeJnsisobPITVOIAMFB9791-73-84 18:48:00 Test Item Value Reference Range Interpretation Comments EBV Interp (test code = EBV SEE COMMENT Interp) [facility] [id number] 18:48:00 Test Item Value Reference Range Interpretation Comments Result 2 (Urine Culture) See Result Comment (test code = Result 2 (Urine Culture)) [facility] [id number] 18:48:00 Test Item Value Reference Range Interpretation Comments UA Color (test code = UA Color) YELLOW [facility] [id number] 18:48:00 Test Item Value Reference Range Interpretation Comments UA Turbidity (test code = UA Turbidity) CLEAR [facility] [id number] 18:48:00 Test Item Value Reference Range Interpretation Comments UA Spec Grav (test code = UA Spec 1.021 1 1.001-1.035 Grav) [facility] [id number] 18:48:00 Test Item Value Reference Range Interpretation Comments UA pH (test code = UA pH) < OR = 5.0 5.0-8.0 [facility] [id number] 18:48:00 Test Item Value Reference Range Interpretation Comments UA Glucose (test code = UA Glucose) NEGATIVE [facility] [id number] 18:48:00 Test Item Value Reference Range Interpretation Comments UA Bili (test code = UA Bili) NEGATIVE [facility] [id number] 18:48:00 Test Item Value Reference Range Interpretation Comments UA Ketones (test code = UA Ketones) NEGATIVE [facility] [id number] 18:48:00 Test Item Value Reference Range Interpretation Comments UA Blood (test code = UA Blood) NEGATIVE [facility] [id number] 18:48:00 Test Item Value Reference Range Interpretation Comments UA Protein (test code = UA Protein) NEGATIVE [facility] [id number] 18:48:00 Test Item Value Reference Range Interpretation Comments UA Nitrite (test code = UA Nitrite) NEGATIVE [facility] [id number] 18:48:00 Test Item Value Reference Range Interpretation Comments UA Leuk Est (test code = UA Leuk NEGATIVE Est) [facility] AND [id number] 18:48:00 Test Item Value Reference Range Interpretation Comments UA WBC (test code = UA WBC) 0-5 [facility] [id number] 18:48:00 Test Item Value Reference Range Interpretation Comments UA RBC (test code = UA RBC) NONE SEEN [facility] [id number] 18:48:00 Test Item Value Reference Range Interpretation Comments UA Sq Epi (test code = UA Sq Epi) 0-5 [facility] [id number] 18:48:00 Test Item Value Reference Range Interpretation Comments UA Bacteria (test code = UA NONE SEEN Bacteria) [facility] [id number] 18:48:00 Test Item Value Reference Range Interpretation Comments UA Hyal Cast (test code = UA Hyal NONE SEEN Cast) [facility]roeMqgsqesJADPYNOMWV0786-30-80 18:48:00 Test Item Value Reference Range Interpretation Comments EBV VCA IgM (test code = EBV VCA IgM) no gt [id number] 18:48:00 Test Item Value Reference Range Interpretation Comments EBV VCA IgG (test code = EBV VCA IgG) no gt [facility]roeHdhpqznKAISRHGOCQ5568-92-92 18:48:00 Test Item Value Reference Range Interpretation Comments EBV NA IgG (test code = EBV NA IgG) 25.60 [facility]roeVdpdozyKVURYSSRLD7570-72-33 18:48:00 Test Item Value Reference Range Interpretation Comments EBV Interp (test code = EBV SEE COMMENT Interp) [facility] [id number] 18:48:00 Test Item Value Reference Range Interpretation Comments Result 2 (Urine Culture) See Result Comment (test code = Result 2 (Urine Culture)) [facility] AND [id number] 18:48:00 Test Item Value Reference Range Interpretation Comments UA Color (test code = UA Color) YELLOW [facility] AND [id number] 18:48:00 Test Item Value Reference Range Interpretation Comments UA Turbidity (test code = UA Turbidity) CLEAR [facility] AND [id number] 18:48:00 Test Item Value Reference Range Interpretation Comments UA Spec Grav (test code = UA Spec 1.021 1 1.001-1.035 Grav) [facility] AND [id number] 18:48:00 Test Item Value Reference Range Interpretation Comments UA pH (test code = UA pH) < OR = 5.0 5.0-8.0 [facility] AND [id number] 18:48:00 Test Item Value Reference Range Interpretation Comments UA Glucose (test code = UA Glucose) NEGATIVE [facility] AND [id number] 18:48:00 Test Item Value Reference Range Interpretation Comments UA Bili (test code = UA Bili) NEGATIVE [facility] AND [id number] 18:48:00 Test Item Value Reference Range Interpretation Comments UA Ketones (test code = UA Ketones) NEGATIVE [facility] AND [id number] 18:48:00 Test Item Value Reference Range Interpretation Comments UA Blood (test code = UA Blood) NEGATIVE [facility] AND [id number] 18:48:00 Test Item Value Reference Range Interpretation Comments UA Protein (test code = UA Protein) NEGATIVE [facility] AND [id number] 18:48:00 Test Item Value Reference Range Interpretation Comments UA Nitrite (test code = UA Nitrite) NEGATIVE [facility] AND [id number] 18:48:00 Test Item Value Reference Range Interpretation Comments UA Leuk Est (test code = UA Leuk NEGATIVE Est) [facility] AND [id number] 18:48:00 Test Item Value Reference Range Interpretation Comments UA WBC (test code = UA WBC) 0-5 [facility] AND [id number] 18:48:00 Test Item Value Reference Range Interpretation Comments UA RBC (test code = UA RBC) NONE SEEN [facility] AND [id number] 18:48:00 Test Item Value Reference Range Interpretation Comments UA Sq Epi (test code = UA Sq Epi) 0-5 [facility] AND [id number] 18:48:00 Test Item Value Reference Range Interpretation Comments UA Bacteria (test code = UA NONE SEEN Bacteria) [facility] AND [id number] 18:48:00 Test Item Value Reference Range Interpretation Comments UA Hyal Cast (test code = UA Hyal NONE SEEN Cast) [facility]2020-05-06 21:50:00 Test Item Value Reference Range Interpretation Comments C trachomatis by ERASMO (test code NOT DETECTED = C trachomatis by ERASMO) [facility]2020-05-06 21:50:00 Test Item Value Reference Range Interpretation Comments N gonorrhea by ERASMO (test code = NOT DETECTED N gonorrhea by ERASMO) [facility]2020-05-06 21:50:00 Test Item Value Reference Range Interpretation Comments C trachomatis by ERASMO (test code NOT DETECTED = C trachomatis by ERASMO) [facility]2020-05-06 21:50:00 Test Item Value Reference Range Interpretation Comments N gonorrhea by ERASMO (test code = NOT DETECTED N gonorrhea by ERASMO) [facility]2020-05-06 21:47:00 Test Item Value Reference Range Interpretation Comments C trachomatis by ERASMO (test code NOT DETECTED = C trachomatis by ERASMO) [facility]2020-05-06 21:47:00 Test Item Value Reference Range Interpretation Comments N gonorrhea by ERASMO (test code = NOT DETECTED N gonorrhea by ERASMO) [facility]2020-05-06 21:47:00 Test Item Value Reference Range Interpretation Comments C trachomatis by ERASMO (test code NOT DETECTED = C trachomatis by ERASMO) [facility]2020-05-06 21:47:00 Test Item Value Reference Range Interpretation Comments N gonorrhea by ERASMO (test code = NOT DETECTED N gonorrhea by ERASMO) [facility] [id number] 08:49:00 Test Item Value Reference Range Interpretation Comments Troponin-I (test code no gt See_Comment [Auto mated message] The = Troponin-I) system which g enerated this result transmit tia reference range : <=0.40. The reference r nadya was not used to interpr et this result as andrea l/abnormal. [facility] [employer] [id number] 08:49:00 Test Item Value Reference Range Interpretation Comments Glucose Lvl (test code = Glucose Lvl) 93 70-99 [facility] [id number] 08:49:00 Test Item Value Reference Range Interpretation Comments BUN (test code = BUN) 9 7-22 [facility] [id number] 08:49:00 Test Item Value Reference Range Interpretation Comments Creatinine Lvl (test code = Creatinine 0.69 0.50-1.40 Lvl) [facility] [id number] 08:49:00 Test Item Value Reference Range Interpretation Comments Sodium Lvl (test code = Sodium Lvl) 143 135-145 [facility] [id number] 08:49:00 Test Item Value Reference Range Interpretation Comments Potassium Lvl (test code = Potassium 4.4 3.5-5.1 Lvl) [facility] [id number] 08:49:00 Test Item Value Reference Range Interpretation Comments Chloride Lvl (test code = Chloride Lvl) 112 95-109 [facility] [employer] [id number] 08:49:00 Test Item Value Reference Range Interpretation Comments CO2 (test code = CO2) 27 24-32 [facility] [id number] 08:49:00 Test Item Value Reference Range Interpretation Comments Calcium Lvl (test code = Calcium Lvl) 8.4 8.5-10.5 [facility] [id number] 08:49:00 Test Item Value Reference Range Interpretation Comments Total Protein (test code = Total 6.8 6.4-8.4 Protein) [facility] [id number] 08:49:00 Test Item Value Reference Range Interpretation Comments Albumin Lvl (test code = Albumin Lvl) 3.2 3.5-5.0 [employer]-04-04 08:49:00 Test Item Value Reference Range Interpretation Comments ALT (test code = ALT) 20 See_Comment [Auto mated message] The system which ge nerated this result transmit tia reference range : <=65. The reference range was not used to interpr et this result as andrea l/abnormal. [employer]04-04 08:49:00 Test Item Value Reference Range Interpretation Comments AST (test code = AST) 14 See_Comment [Auto mated message] The system which ge nerated this result transmit tia reference range : <=37. The reference range was not used to interpr et this result as andrea l/abnormal. [employer]04-04 08:49:00 Test Item Value Reference Range Interpretation Comments Alk Phos (test code = Alk Phos) 69 39-136 [facility] [employer]04-04 08:49:00 Test Item Value Reference Range Interpretation Comments Bili Total (test code = Bili Total) 0.3 0.2-1.3 [employer]04-04 08:49:00 Test Item Value Reference Range Interpretation Comments AGAP (test code = AGAP) 8.4 10.0-20.0 [employer]-04-04 08:49:00 Test Item Value Reference Range Interpretation Comments B/C Ratio (test code = B/C Ratio) 13 1 6-25 [employer]-04 08:49:00 Test Item Value Reference Range Interpretation Comments Globulin (test code = Globulin) 3.6 2.7-4.2 [employer]-04-04 08:49:00 Test Item Value Reference Range Interpretation Comments A/G Ratio (test code = A/G Ratio) 0.9 1 0.7-1.6 [employer]-04-04 08:49:00 Test Item Value Reference Range Interpretation Comments eGFR (test code = eGFR) 99 [employer]-04-04 08:49:00 Test Item Value Reference Range Interpretation Comments WBC (test code = WBC) 4.2 3.7-10.4 [employer]-04-04 08:49:00 Test Item Value Reference Range Interpretation Comments RBC (test code = RBC) 3.88 4.20-5.40 [facility]vineSomzyqlCKQKHONBQW6090-03-00 08:49:00 Test Item Value Reference Range Interpretation Comments Hgb (test code = Hgb) 12.3 12.0-16.0 [facility]rapevineZdfgjlqITYMYGEJWJ3435-22-08 08:49:00 Test Item Value Reference Range Interpretation Comments Hct (test code = Hct) 37.5 36.0-48.0 [facility] GrapevineKowfpxiYLBLMCNEND6213-46-17 08:49:00 Test Item Value Reference Range Interpretation Comments MCV (test code = MCV) 96.6 80.0-98.0 [facility] GrapevineQwkdxryCHAECZBJPI6487-94-59 08:49:00 Test Item Value Reference Range Interpretation Comments MCH (test code = MCH) 31.6 pg 27.0-31.0 [facility] GrapevineZntkwqyHXDXRSYUVV3550-55-14 08:49:00 Test Item Value Reference Range Interpretation Comments MCHC (test code = MCHC) 32.7 32.0-36.0 [facility] GrapevineTdyjtbfUXBBLYYPVY5250-85-75 08:49:00 Test Item Value Reference Range Interpretation Comments RDW (test code = RDW) 12.5 11.5-14.5 [facility] GrapevineDmkwuinXWHSXJHCPN7447-08-81 08:49:00 Test Item Value Reference Range Interpretation Comments Platelet (test code = Platelet) 166 133-450 [facility] GrapevinePxqayipCTNMLPWRHV3318-43-53 08:49:00 Test Item Value Reference Range Interpretation Comments MPV (test code = MPV) 10.4 7.4-10.4 [facility] GrapevineVgzrffmFMDADAFIDS4444-46-14 08:49:00 Test Item Value Reference Range Interpretation Comments Segs (test code = Segs) 52.9 45.0-75.0 [facility] GrapevineXzoflheEZHDARLESU7695-67-10 08:49:00 Test Item Value Reference Range Interpretation Comments Lymphocytes (test code = Lymphocytes) 36.0 20.0-40.0 [place] [address]-04-04 08:49:00 Test Item Value Reference Range Interpretation Comments Monocytes (test code = Monocytes) 7.3 2.0-12.0 [place] [address]-04-04 08:49:00 Test Item Value Reference Range Interpretation Comments Eosinophils (test code = 2.5 See_Comment [A utomated message] The Eosinophils) system which ge nerated this result tra nsmitted reference range : <=4.0. The reference r nadya was not used to int erpret this result as normal/abnormal . [facility] 08:49:00 Test Item Value Reference Range Interpretation Comments Basophils (test code = 1.3 See_Comment [Aut omated message] The Basophils) system which ge nerated this result tra nsmitted reference range : <=1.0. The reference r nadya was not used to int erpret this result as normal/abnormal . [facility] HospitalXptpuqbDENXPWDVTC4555-93-16 08:49:00 Test Item Value Reference Range Interpretation Comments Neutrophils # (test code = Neutrophils 2.2 1.5-8.1 #) [facility] HospitalFzvbfzeAGMVNPJBXQ7461-68-28 08:49:00 Test Item Value Reference Range Interpretation Comments Lymphocytes # (test code = Lymphocytes 1.5 1.0-5.5 #) [facility] GrapevineRetennoSHDDECZEKG5934-89-41 08:49:00 Test Item Value Reference Range Interpretation Comments Monocytes # (test code 0.3 See_Comment [Aut omated message] The = Monocytes #) system which generated this result tra nsmitted reference range : <=0.8. The reference r nadya was not used to int erpret this result as normal/abnormal . [facility] GrapevineIdzawrjTGUVKTGFVD1092-29-43 08:49:00 Test Item Value Reference Range Interpretation Comments Eosinophils # (test code 0.1 See_Comment [A utomated message] The = Eosinophils #) system whic h generated this result tra nsmitted reference range : <=0.5. The reference r nadya was not used to int erpret this result as normal/abnormal . [facility] HospitalZhoyieoZHJKZBGHKM9246-30-13 08:49:00 Test Item Value Reference Range Interpretation Comments Basophils # (test code 0.1 See_Comment [Aut omated message] The = Basophils #) system which generated this result tra nsmitted reference range : <=0.2. The reference r nadya was not used to int erpret this result as normal/abnormal . [facility]ownCARDI[facility] [id number] 08:49:00 Test Item Value Reference Range Interpretation Comments Troponin-I (test code no gt See_Comment [Auto mated message] The = Troponin-I) system which g enerated this result transmit tia reference range : <=0.40. The reference r nadya was not used to interpr et this result as andrea l/abnormal. [facility] [id number] 08:49:00 Test Item Value Reference Range Interpretation Comments Glucose Lvl (test code = Glucose Lvl) 93 70-99 [facility] [id number] 08:49:00 Test Item Value Reference Range Interpretation Comments BUN (test code = BUN) 9 7-22 [facility] [id number] 08:49:00 Test Item Value Reference Range Interpretation Comments Creatinine Lvl (test code = Creatinine 0.69 0.50-1.40 Lvl) [facility] [id number] 08:49:00 Test Item Value Reference Range Interpretation Comments Sodium Lvl (test code = Sodium Lvl) 143 135-145 [facility] [id number] 08:49:00 Test Item Value Reference Range Interpretation Comments Potassium Lvl (test code = Potassium 4.4 3.5-5.1 Lvl) [facility] [id number] 08:49:00 Test Item Value Reference Range Interpretation Comments Chloride Lvl (test code = Chloride Lvl) 112 95-109 [facility] [id number] 08:49:00 Test Item Value Reference Range Interpretation Comments CO2 (test code = CO2) 27 24-32 [facility] [id number] 08:49:00 Test Item Value Reference Range Interpretation Comments Calcium Lvl (test code = Calcium Lvl) 8.4 8.5-10.5 [facility] [id number] 08:49:00 Test Item Value Reference Range Interpretation Comments Total Protein (test code = Total 6.8 6.4-8.4 Protein) [facility] [id number] 08:49:00 Test Item Value Reference Range Interpretation Comments Albumin Lvl (test code = Albumin Lvl) 3.2 3.5-5.0 [facility] [id number] 08:49:00 Test Item Value Reference Range Interpretation Comments ALT (test code = ALT) 20 See_Comment [Auto mated message] The system which ge nerated this result transmit tia reference range : <=65. The reference range was not used to interpr et this result as andrea l/abnormal. [facility] [employer] [id number] 08:49:00 Test Item Value Reference Range Interpretation Comments AST (test code = AST) 14 See_Comment [Auto mated message] The system which ge nerated this result transmit tia reference range : <=37. The reference range was not used to interpr et this result as andrea l/abnormal. [facility] [employer] [id number] 08:49:00 Test Item Value Reference Range Interpretation Comments Alk Phos (test code = Alk Phos) 69 39-136 [facility] [id number] 08:49:00 Test Item Value Reference Range Interpretation Comments Bili Total (test code = Bili Total) 0.3 0.2-1.3 [facility] [id number] 08:49:00 Test Item Value Reference Range Interpretation Comments AGAP (test code = AGAP) 8.4 10.0-20.0 [facility] [id number] 08:49:00 Test Item Value Reference Range Interpretation Comments B/C Ratio (test code = B/C Ratio) 13 1 6-25 [facility] [id number] 08:49:00 Test Item Value Reference Range Interpretation Comments Globulin (test code = Globulin) 3.6 2.7-4.2 [facility] [id number] 08:49:00 Test Item Value Reference Range Interpretation Comments A/G Ratio (test code = A/G Ratio) 0.9 1 0.7-1.6 [facility] [id number] 08:49:00 Test Item Value Reference Range Interpretation Comments eGFR (test code = eGFR) 99 [facility]roeJrlvjxjQWPOFIUTSX4053-75-80 08:49:00 Test Item Value Reference Range Interpretation Comments WBC (test code = WBC) 4.2 3.7-10.4 [facility]roeHuffdbyVQKGUMBETD9787-17-16 08:49:00 Test Item Value Reference Range Interpretation Comments RBC (test code = RBC) 3.88 4.20-5.40 [facility]roeUswcppeURNAVZJHQA6428-77-32 08:49:00 Test Item Value Reference Range Interpretation Comments Hgb (test code = Hgb) 12.3 12.0-16.0 [facility]NVFSWYLOHE2196-97-09 08:49:00 Test Item Value Reference Range Interpretation Comments Hct (test code = Hct) 37.5 36.0-48.0 [place] [address]-04-04 08:49:00 Test Item Value Reference Range Interpretation Comments MCV (test code = MCV) 96.6 80.0-98.0 [place] [address]-04-04 08:49:00 Test Item Value Reference Range Interpretation Comments MCH (test code = MCH) 31.6 pg 27.0-31.0 [place] 538990-04-04 08:49:00 Test Item Value Reference Range Interpretation Comments MCHC (test code = MCHC) 32.7 32.0-36.0 [facility]vineGujusbeFDERIVBBIF2421-35-50 08:49:00 Test Item Value Reference Range Interpretation Comments RDW (test code = RDW) 12.5 11.5-14.5 [facility] GrapevineSynbxwgSDNUBXRRMI1539-11-87 08:49:00 Test Item Value Reference Range Interpretation Comments Platelet (test code = Platelet) 166 133-450 [facility] GrapevineQuausbiJJJFUWQEKT4351-01-73 08:49:00 Test Item Value Reference Range Interpretation Comments MPV (test code = MPV) 10.4 7.4-10.4 [place] 538990-04-04 08:49:00 Test Item Value Reference Range Interpretation Comments Segs (test code = Segs) 52.9 45.0-75.0 [facility] GrapevineXykfidiGBCRGSTWLY4033-16-88 08:49:00 Test Item Value Reference Range Interpretation Comments Lymphocytes (test code = Lymphocytes) 36.0 20.0-40.0 [place] [address]-04-04 08:49:00 Test Item Value Reference Range Interpretation Comments Monocytes (test code = Monocytes) 7.3 2.0-12.0 [place] [address]-04-04 08:49:00 Test Item Value Reference Range Interpretation Comments Eosinophils (test code = 2.5 See_Comment [A utomated message] The Eosinophils) system which ge nerated this result tra nsmitted reference range : <=4.0. The reference r nadya was not used to int erpret this result as normal/abnormal . [facility] GrapevineFmeosnnOSSPMOMVTU8673-84-47 08:49:00 Test Item Value Reference Range Interpretation Comments Basophils (test code = 1.3 See_Comment [Aut omated message] The Basophils) system which ge nerated this result tra nsmitted reference range : <=1.0. The reference r nadya was not used to int erpret this result as normal/abnormal . [facility] GrapevineJmjywmaLKAHUMZZBH6230-29-77 08:49:00 Test Item Value Reference Range Interpretation Comments Neutrophils # (test code = Neutrophils 2.2 1.5-8.1 #) [facility] GrapevineHntysxhNFBYWCDIOL1660-76-74 08:49:00 Test Item Value Reference Range Interpretation Comments Lymphocytes # (test code = Lymphocytes 1.5 1.0-5.5 #) [facility] GrapevineNzltbxkDFBFFULZSQ4718-81-30 08:49:00 Test Item Value Reference Range Interpretation Comments Monocytes # (test code 0.3 See_Comment [Aut omated message] The = Monocytes #) system which generated this result tra nsmitted reference range : <=0.8. The reference r nadya was not used to int erpret this result as normal/abnormal . [facility] GrapevineLphthgyEFUQJGJOXM9451-14-66 08:49:00 Test Item Value Reference Range Interpretation Comments Eosinophils # (test code 0.1 See_Comment [A utomated message] The = Eosinophils #) system whic h generated this result tra nsmitted reference range : <=0.5. The reference r nadya was not used to int erpret this result as normal/abnormal . [facility] GrapevineFmnisiqHCQTDOUZQY1001-55-34 08:49:00 Test Item Value Reference Range Interpretation Comments Basophils # (test code 0.1 See_Comment [Aut omated message] The = Basophils #) system which generated this result tra nsmitted reference range : <=0.2. The reference r nadya was not used to int erpret this result as normal/abnormal . [facility]] TSH, 3RD [id number] 12:38:00 Test Item Value Reference Range Interpretation Comments TSH; Below Low Threshold (test 0.067 {uIU/mL} 0.450-4.500 code = 42334-0) [facility]] VITAMIN D, 25-HYDROXY, LC/MS/[id number] 12:38:00 Test Item Value Reference Range Interpretation Comments Vitamin D, 20.0 ng/mL 30.0-100.0 Vitamin D defic iency has 25-Hydroxy; Below been defin ed by the Low Threshold (test [facility] ofMedicine and code = 94797-1) an Endocrine Society practice guidel ine as alevel of serum 25-OH vitamin D less than 20 ng/mL (1,2).The Endocrine Socie ty went on to further d efine vitamin Dinsuff iciency as a level betw een 21 and 29 ng/mL (2 ).1. IOM ([place] [employer] ed[employer]). 2010. Dietary r eference intakes for ca lcium and D. Garcias D C: The [employer].2. Brandon MF, Vera LIMA, Lexa mena FRANKEL, et al. Evaluatio n, treatment, and prevention of v itamin D deficiency: an Endocrine Socie clinical practi ce guideline. JCEM . 2010; 96(7):1911 -30. [facility]] T3, [id number] 12:38:00 Test Item Value Reference Range Interpretation Comments Triiodothyronine (T3) (test code = 110 ng/dL 71-180 3053-6) [facility]] T4, [id number] 12:38:00 Test Item Value Reference Range Interpretation Comments T4,Free(Direct) (test code = 1.73 ng/dL 0.82-1.77 3024-7) [facility]
[2021-10-27] MEDS ORDERED: NA CHLORIDE 0.9% 1,000 ML ONE (14:06)
[2021-10-27] MEDS ORDERED: MORPHINE 4 MG/ML SYR ONE (14:06)
[2021-10-27] MEDS ORDERED: ONDANSETRON 4 MG/2 ML VIAL ONE ×2 (14:06→16:55)
--- NOTE | 2021-10-27 14:13 | RAD REPORT ---
EXAM DESCRIPTION: CT - Head Brain Wo Cont - 10/27/2021 2:05 pm CLINICAL HISTORY: headache, dizziness, nausea COMPARISON: No comparisons TECHNIQUE: All CT scans are performed using dose optimization technique as appropriate and may inclu de automated exposure control or mA/KV adjustment according to patient size. FINDINGS: No intracranial hemorrhage, hydrocephalus or extra-axial fluid collection.No areas of brai n edema or evidence of midline shift. The paranasal sinuses and mastoids are clear. The calvarium is intact. IMPRESSION: No acute intracranial abnormality.
[2021-10-27 14:29] LABS: Hematocrit 38.8 % (36.0-45.0); Lymphocytes % 16.6 % (15.3-44.8); MPV 10.2 fL (7.6-11.3)
[2021-10-27 14:48] LABS: Potassium 3.7 mmol/L (3.5-5.1); Troponin High Sensitivity 7.6 pg/mL (<58.9)
--- NOTE | 2021-10-27 16:31 | RAD REPORT ---
EXAM DESCRIPTION: MRI - Brain Wo Cont - 10/27/2021 4:18 pm CLINICAL HISTORY: Headache, new or worsening COMPARISON: Head Brain Wo Cont dated 10/27/2021 TECHNIQUE: Sagittal T1-weighted images were obtained along with PD/heavily T2-weighted and T2-FLAIR images. Axial DWI and ADC mapping sequences were also obtained along with coronal heavily T2-weighted images were obtained. FINDINGS: No intracranial hemorrhage, mass or acute infarction. There is no edema or shift of midlin e structures. No extra-axial fluid collections. Signal voids are seen as a normal finding in the xu r intracranial vessels. No significant white matter disease. Mastoid air cells and paranasal sinuses are clear. IMPRESSION: No acute intracranial abnormality.
--- NOTE | 2021-10-27 16:39 | ER ---
Nurse's Notes [facility] Name: Dee oJhnson Age: 56 yrs Sex: Female : 1965 Arrival Date: 10/27/2021 Time: 13:17 Bed 16 Private MD: Axel Sampson Diagnosis: Headache Presentation: 10/27 13:26 Chief complaint: Patient states: "I woke up with what I thought was an allergy headache aa5 around 6am today but then I went to work and started feeling worse and really nauseated". pt also reports dizziness, fatigue, and reports right hand tingling. 13:26 Coronavirus screen: At this time, the client does not indicate any symptoms associated aa5 with coronavirus-19. Ebola Screen: No symptoms or risks identified at this time. Initial Sepsis Screen: Does the patient meet any 2 criteria? No. Patient's initial sepsis screen is negative. Does the patient have a suspected source of infection? No. Patient's initial sepsis screen is negative. Risk Assessment: Do you want to hurt yourself or someone else? Patient reports no desire to harm self or others. Onset of symptoms was October 27, 2021. 13:26 Acuity: BERNABE 3 aa5 13:26 Method Of Arrival: Ambulatory aa5 Triage Assessment: 15:30 Headache History: Denies prior headaches. General: Appears. General: Behavior is calm, jg9 cooperative. Pain: Complains of pain in forehead and top of head and head Pain began 2-3 days ago. 15:30 Pain: Also complains of nausea. jg9 Historical: - Allergies: 13:26 ACETAMINOPHEN; aa5 13:26 Cefdinir; aa5 - PMHx: 13:26 Hypertensive disorder; Hypothyroidism; Allergies; aa5 - Immunization history:: Adult Immunizations up to date. - Family history:: not pertinent. - Social history:: Smoking status: Patient denies any tobacco usage or history of. - Hospitalizations: : No recent hospitalization is reported. Screenin:43 Abuse screen: Denies threats or abuse. Denies injuries from another. Nutritional jg9 screening: No deficits noted. Tuberculosis screening: No symptoms or risk factors identified. Fall Risk None identified. Assessment: 15:22 Pain: Complains of pain in head Pain currently is 7 out of 10 on a pain scale. Neuro: jg9 Reports headache diffuse. GI: Reports nausea is gone. 15:24 Reassessment: Patient states feeling better. Patient states symptoms have improved. jg9 Vital Signs: 13:26 BP 138 / 76; Pulse 71; Resp 16 S; Temp 97.9(TE); Pulse Ox 97% on R/A; aa5 14:26 BP 132 / 54; Pulse 57; Resp 17; Pulse Ox 100% on R/A; jg9 15:00 BP 116 / 51; Pulse 53; Resp 18 S; Pulse Ox 100% ; Pain 7/10; jg9 16:30 BP 119 / 63; Pulse 85; Resp 20 S; Pulse Ox 100% on R/A; Pain 9/10; jg9 [place] Coma Score: 16:34 Eye Response: spontaneous(4). Verbal Response: oriented(5). Motor Response: obeys rn commands(6). Total: 15. ED Course: 13:17 Patient arrived in ED. as 13:18 Axel Sampson MD is Private Physician. as 13:25 Max Ojeda MD is Attending Physician. rn 13:25 Caitlin Vasques RN is Primary Nurse. jg9 13:26 Arm band placed on Patient placed in an exam room, on a stretcher. aa5 13:41 Triage completed. aa5 14:06 CT Head Brain wo Cont In Process Unspecified. EDMS 14:17 Inserted saline lock: 20 gauge in left antecubital area, using aseptic technique. Blood jg9 collected. 15:23 No apparent distress. Resting quietly. jg9 15:23 Patient has correct armband on for positive identification. Bed in low position. Call jg9 light in reach. Side rails up X 1. 16:15 Brain Wo Cont MRI In Process Unspecified. EDMS 16:30 Patient requests pain medication. Patient report headache is returning 03/13-provider jg9 notified. 16:46 No provider procedures requiring assistance completed. jg9 16:47 IV discontinued. jg9 Administered Medications: 14:18 Drug: NS 0.9% 1000 ml Route: IV; Rate: 1000 ml; Site: left antecubital; jg9 15:24 Follow up: IV Status: Completed infusion; IV Intake: 1000ml jg9 14:18 Drug: Zofran (Ondansetron) 4 mg Route: IVP; Site: left antecubital; jg9 15:24 Follow up: Response: No adverse reaction; Nausea is decreased jg9 14:18 Drug: morphine 4 mg {Note: RASS-0.} Route: IVP; Site: left antecubital; jg9 15:24 Follow up: Response: No adverse reaction; Pain is decreased jg9 16:43 Drug: Demerol (meperidine) 25 mg {Note: RASS-0.} Route: IVP; Site: left forearm; jg9 17:11 Follow up: Response: Pain is decreased; Medication administered at discharge. jg9 17:00 Drug: Zofran (Ondansetron) 4 mg Route: IVP; Site: left forearm; jg9 17:09 Follow up: Response: No adverse reaction; Medication administered at discharge. jg9 Intake: 15:24 IV: 1000ml; Total: 1000ml. jg9 Outcome: 16:39 Discharge ordered by . rn 16:46 Discharged to home ambulatory. jg9 16:46 Condition: improved 16:46 Discharge instructions given to patient, Instructed on discharge instructions, follow up and referral plans. Demonstrated understanding of instructions, follow-up care. 17:11 Patient left the ED. jg9 Signatures: Dispatcher [employer] Judi Gold Roman, MD MD rn Calderon, Audri RN RN aa5 Caitlin Vasques RN RN jg9
--- NOTE | 2021-10-27 16:40 | EDPHYS ---
Physician Documentation [facility] Name: Dee Johnson Age: 56 yrs Sex: Female : 1965 Arrival Date: 10/27/2021 Time: 13:17 Bed 16 Private MD: Axel Sampson ED Physician Max Ojeda HPI: 10/27 16:34 This 56 yrs old Female presents to ER via Ambulatory with complaints of Headache, rn Numbness Of Hand, Nausea, Dizziness, fatigue. 16:34 The patient complains of pain to the top of head and forehead. The patient describes rn the headache as aching. Onset: The symptoms/episode began/occurred this morning. Associated signs and symptoms: Pertinent positives: malaise, nausea, Pertinent negatives: altered mental status, fever, neck stiffness, rash, vision changes, vision loss, vertigo. Severity of symptoms: At its worst the pain was moderate, in the emergency department the pain has improved. Headache History:. The symptoms are alleviated by nothing. the symptoms are aggravated by nothing. The patient has not experienced similar symptoms in the past. The patient has been recently seen at an urgent care. Pt reports woke up with headache, frontal and top of head, no trauma or injury. Reports feels nauseous and malaise. No chest pain/sob. Reports hx of migraines when younger but went away. Reports right hand numb but no other focal neuro complaints. Went to urgent care and sent here to rule out stroke. . Historical: - Allergies: 13:26 ACETAMINOPHEN; aa5 13:26 Cefdinir; aa5 - PMHx: 13:26 Hypertensive disorder; Hypothyroidism; Allergies; aa5 - Immunization history:: Adult Immunizations up to date. - Family history:: not pertinent. - Social history:: Smoking status: Patient denies any tobacco usage or history of. - Hospitalizations: : No recent hospitalization is reported. ROS: 16:34 Constitutional: Negative for fever, chills, and weight loss, Eyes: Negative for injury, rn pain, redness, and discharge, Neck: Negative for injury, pain, and swelling, Cardiovascular: Negative for chest pain, palpitations, and edema, Respiratory: Negative for shortness of breath, cough, wheezing, and pleuritic chest pain, Abdomen/GI: Negative for abdominal pain, nausea, vomiting, diarrhea, and constipation, Back: Negative for injury and pain, MS/Extremity: Negative for injury and deformity, Skin: Negative for injury, rash, and discoloration, Neuro: Negative for weakness, and seizure. Exam: 15:59 ECG was reviewed by the Attending Physician. rn 16:34 Constitutional: This is a well developed, well nourished patient who is awake, alert, rn and in no acute distress. Head/Face: Normocephalic, atraumatic. Eyes: Pupils equal round and reactive to light, extra-ocular motions intact. Periorbital areas with no swelling, redness, or edema. Neck: Trachea midline, no thyromegaly or masses palpated, and no cervical lymphadenopathy. Supple, full range of motion without nuchal rigidity, or vertebral point tenderness. No Meningismus. Cardiovascular: Regular rate and rhythm. No pulse deficits. Respiratory: No increased work of breathing, no retractions or nasal flaring. Abdomen/GI: soft, non-tender Skin: Warm, dry with normal turgor. Normal color with no rashes, no lesions, and no evidence of cellulitis. MS/ Extremity: Pulses equal, no cyanosis. Neurovascular intact. Full, normal range of motion. Equal circumference. Neuro: Awake and alert, GCS 15, oriented to person, place, time, and situation. Cranial nerves II-XII grossly intact. Motor strength 5/5 in all extremities. Sensory grossly intact. Cerebellar exam normal. Vital Signs: 13:26 BP 138 / 76; Pulse 71; Resp 16 S; Temp 97.9(TE); Pulse Ox 97% on R/A; aa5 14:26 BP 132 / 54; Pulse 57; Resp 17; Pulse Ox 100% on R/A; jg9 15:00 BP 116 / 51; Pulse 53; Resp 18 S; Pulse Ox 100% ; Pain 7/10; jg9 16:30 BP 119 / 63; Pulse 85; Resp 20 S; Pulse Ox 100% on R/A; Pain 9/10; jg9 [place] Coma Score: 16:34 Eye Response: spontaneous(4). Verbal Response: oriented(5). Motor Response: obeys rn commands(6). Total: 15. MDM: 13:25 Patient medically screened. rn 16:34 Differential diagnosis: cluster headache, hypertensive headache, intracerebral rn hemorrhage, migraine, neoplasm, tension headache, vasomotor headache. Data reviewed: vital signs, nurses notes, lab test result(s), EKG, radiologic studies, CT scan, MRI, and as a result, I will discharge patient. Counseling: I had a detailed discussion with the patient and/or guardian regarding: the historical points, exam findings, and any diagnostic results supporting the discharge/admit diagnosis, lab results, radiology results, the need for outpatient follow up, to return to the emergency department if symptoms worsen or persist or if there are any questions or concerns that arise at home. Response to treatment: the patient's symptoms have mildly improved after treatment, and as a result, I will discharge patient. Special discussion: I discussed with the patient/guardian in detail that at this point there is no indication for admission to the hospital. It is understood, however, that if the symptoms persist or worsen the patient needs to return immediately for re-evaluation. 16:34 ED course: MRI brain neg for acute findings. Stable vitals. CT head neg. ECG and trop rn normal. Will dc home as headache/possible migraine. . 10/27 13:41 Order name: CBC with Diff; Complete Time: 14:50 10/27 13:41 Order name: Basic Metabolic Panel; Complete Time: 14:50 10/27 13:41 Order name: CT Head Brain wo Cont; Complete Time: 14:18 10/27 13:41 Order name: [place] Screen Profile; Complete Time: 15:04 10/27 13:41 Order name: Troponin High Sensitivity; Complete Time: 14:50 10/27 14:19 Order name: Brain Wo Cont MRI; Complete Time: 16:34 10/27 13:41 Order name: IV Start; Complete Time: 14:18 10/27 13:41 Order name: Cardiac monitoring; Complete Time: 14:18 10/27 13:41 Order name: EKG; Complete Time: 13:42 10/27 13:41 Order name: O2 Sat Monitoring; Complete Time: 16:43 10/27 13:41 Order name: EKG - Nurse/Tech; Complete Time: 14:37 rn EC:59 Rate is 54 beats/min. Rhythm is regular. QRS [place] is Normal. LA interval is normal. QRS rn interval is normal. QT interval is normal. No Q waves. T waves are Normal. No ST changes noted. Clinical impression: Sinus bradycardia. Interpreted by me. Reviewed by me. Administered Medications: 14:18 Drug: NS 0.9% 1000 ml Route: IV; Rate: 1000 ml; Site: left antecubital; jg9 15:24 Follow up: IV Status: Completed infusion; IV Intake: 1000ml j9 14:18 Drug: Zofran (Ondansetron) 4 mg Route: IVP; Site: left antecubital; jg9 15:24 Follow up: Response: No adverse reaction; Nausea is decreased j9 14:18 Drug: morphine 4 mg {Note: RASS-0.} Route: IVP; Site: left antecubital; jg9 15:24 Follow up: Response: No adverse reaction; Pain is decreased jg9 16:43 Drug: Demerol (meperidine) 25 mg {Note: RASS-0.} Route: IVP; Site: left forearm; jg9 17:11 Follow up: Response: Pain is decreased; Medication administered at discharge. jg9 17:00 Drug: Zofran (Ondansetron) 4 mg Route: IVP; Site: left forearm; jg9 17:09 Follow up: Response: No adverse reaction; Medication administered at discharge. jg9 Disposition Summary: 10/27/21 16:39 Discharge Ordered Location: Home rn Problem: new rn Symptoms: have improved rn Condition: Stable rn Diagnosis - Headache rn Followup: rn - With: Private Physician - When: As needed - Reason: Recheck today's complaints, Re-evaluation by your physician Discharge Instructions: - Discharge Summary Sheet rn - General Headache Without Cause rn - Migraine Headache rn Forms: - Medication Reconciliation Form rn - Thank You Letter rn - Work release form bb - Antibiotic international relations professor - Prescription Opioid Use rn Signatures: Dispatcher [employer] Max Steven MD MD rn Calderon, Audri RN RN Caitlin Kapoor RN RN jg9
[2021-10-27] MEDS ORDERED: MEPERIDINE HCL 25 MG/ML SYR ONE (16:44)
[2021-10-27 19:20] VITALS: TEMP 97.9
[2021-10-27 19:21] VITALS: O2SAT 100
[2021-10-27 19:24] VITALS: BP 119/63
== END 2021-10-27 17:11 | disposition home or self-care (01) ==
LOC: ER 13:16
DX: R51.9 Headache, unspecified (principal); R53.81 Other malaise; R11.0 Nausea; I10 Essential (primary) hypertension; Z88.6 Allergy status to analgesic agent; Z88.8 Allergy status to other drugs, medicaments and biological substances
CPT/HCPCS: 85025; 80048; 36415; 86308; 84484; 70450; 70551; J2175; J7030; J2405 ×2; 99284

== ENCOUNTER 2024-05-05 21:17 | Emergency (ER) | payer BC ==
[2024-05-05] MEDS ORDERED: LIDOCAINE 1% MPF 5 ML VIAL ONE (21:39)
--- NOTE | 2024-05-05 21:53 | EDPHYS ---
Physician Documentation [facility] Name: Dee Johnson Age: 58 yrs Sex: Female : 1965 Arrival Date: 05/05/2024 Time: 21:17 Bed 16 Private MD: ED Physician Khris Weeks HPI: 05/05 21:40 This 58 yrs old Female presents to ER via Wheelchair with complaints of yancy Laceration To Foot. 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 The yancy laceration(s) is(are) located on the left foot. Onset: The symptoms/episode began/occurred just prior to arrival. Associated signs and symptoms: The patient has no apparent associated signs or symptoms. The patient has not experienced similar symptoms in the past. Historical: - Allergies: 21:36 ACETAMINOPHEN; ha1 21:36 Cefdinir; ha1 - PMHx: 21:36 allergies; Hypertensive disorder; Hypothyroidism; ha1 - Immunization history:: Adult Immunizations not up to date, Last tetanus immunization: > 10 years ago. - Infectious Disease History:: Denies. - Social history:: Smoking status: Patient denies any tobacco usage or history of. ROS: 21:45 Constitutional: Negative for fever, chills, and weight loss, Eyes: Negative for injury, yancy pain, redness, and discharge, ENT: Negative for injury, pain, and discharge, Neck: Negative for injury, pain, and swelling, Cardiovascular: Negative for chest pain, palpitations, and edema, Respiratory: Negative for shortness of breath, cough, wheezing, and pleuritic chest pain, Abdomen/GI: Negative for abdominal pain, nausea, vomiting, diarrhea, and constipation, Back: Negative for injury and pain, : Negative for injury, bleeding, discharge, and swelling, Skin: Negative for injury, rash, and discoloration, Neuro: Negative for headache, weakness, numbness, tingling, and seizure, Psych: Negative for depression, anxiety, suicide ideation, homicidal ideation, and hallucinations, Allergy/Immunology: Negative for hives, rash, and allergies, Endocrine: Negative for neck swelling, polydipsia, polyuria, polyphagia, and marked weight changes, Hematologic/Lymphatic: Negative for swollen nodes, abnormal bleeding, and unusual bruising, 21:45 MS/extremity: Positive for laceration, of the left foot, Exam: 21:45 Constitutional: This is a well developed, well nourished patient who is awake, alert, yancy and in no acute distress. Head/Face: Normocephalic, atraumatic. Eyes: Pupils equal round and reactive to light, extra-ocular motions intact. Lids and lashes normal. Conjunctiva and sclera are non-icteric and not injected. Cornea within normal limits. Periorbital areas with no swelling, redness, or edema. ENT: Nares patent. No nasal discharge, no septal abnormalities noted. Tympanic membranes are normal and external auditory canals are clear. Oropharynx with no redness, swelling, or masses, exudates, or evidence of obstruction, uvula midline. Mucous membranes moist. Neck: Trachea midline, no thyromegaly or masses palpated, and no cervical lymphadenopathy. Supple, full range of motion without nuchal rigidity, or vertebral point tenderness. No Meningismus. Chest/axilla: Normal chest wall appearance and motion. Nontender with no deformity. No lesions are appreciated. Cardiovascular: Regular rate and rhythm with a normal S1 and S2. No gallops, murmurs, or rubs. Normal PMI, no JVD. No pulse deficits. Respiratory: Lungs have equal breath sounds bilaterally, clear to auscultation and percussion. No rales, rhonchi or wheezes noted. No increased work of breathing, no retractions or nasal flaring. Abdomen/GI: Soft, non-tender, with normal bowel sounds. No distension or tympany. No guarding or rebound. No evidence of tenderness throughout. Back: No spinal tenderness. No costovertebral tenderness. Full range of motion. Skin: Warm, dry with normal turgor. Normal color with no rashes, no lesions, and no evidence of cellulitis. Neuro: Awake and alert, GCS 15, oriented to person, place, time, and situation. Cranial nerves II-XII grossly intact. Motor strength 5/5 in all extremities. Sensory grossly intact. Cerebellar exam normal. Normal gait. Psych: Awake, alert, with orientation to person, place and time. Behavior, mood, and affect are within normal limits. 21:45 Musculoskeletal/extremity: ROM: no acute changes, intact in all extremities, full active range of motion, full passive range of motion, Circulation is intact in all extremities. Perfusion: the patient is Compartment Syndrome exam of affected extremity: is normal. Vital Signs: 21:26 BP 150 / 77; Pulse 76; Resp 16 S; Temp 97.6(T); Pulse Ox 98% on R/A; Weight 108.86 kg; ha1 Height 5 ft. 6 in. ; 21:51 BP 150 / 77; Pulse 70; Resp 17; Pulse Ox 100% on R/A; rg5 21:26 Body Mass Index 38.74 (108.86 kg, 167.64 cm) ha1 Laceration: 21:51 Wound Repair of 2.5cm ( 1.0in ) subcutaneous laceration to left foot. Irregularly yancy shaped.. Distal neuro/vascular/tendon intact. Anesthesia: Local anesthetic administered with 6 mls of 1% lidocaine w/ Epi. Wound prep: Moderate cleansing by me. Skin closed with 4 4-0 Prolene using vertical mattress sutures and sterile technique. Dressed with Neosporin, non-adherent dressing. Patient tolerated well. MDM: 21:27 Medical Screening Exam initiated yancy 21:45 Differential diagnosis: superficial laceration, tendon injury, vascular injury. Data yancy reviewed: vital signs, nurses notes. Consideration of Admission/Observation Escalation of care including admission/observation considered. I considered the following discharge prescriptions or medication management in the emergency department Medications were administered in the Emergency Department. See MAR. Test considered but Not performed: Labs: no labs. Care significantly affected by the following chronic conditions: Hypertension, Obesity. Administered Medications: 22:02 Drug: Trimethoprim-Sulfamethoxazole PO (160 mg-800 mg (DS) 1 tablet PO once Route: PO; rg5 22:27 Follow up: Response: No adverse reaction rg5 22:02 Drug: Boostrix Tdap IM 0.5 ml IM once; as a single dose Route: IM; Site: affected area; rg5 22:27 Follow up: Response: No adverse reaction rg5 Disposition Summary: 05/05/24 21:53 Discharge Ordered Notes: Location: Home yancy Problem: new yancy Symptoms: have improved yancy Condition: Stable yancy Diagnosis - Laceration without foreign body, left foot yancy Followup: yancy - With: Private Physician - When: 2 - 3 days - Reason: Recheck today's complaints, Continuance of care, Re-evaluation by your physician Discharge Instructions: - Discharge Summary Sheet yancy - Laceration Care, Adult [facility] - Laceration Care, Adult, [id number] [facility] Forms: - Medication Reconciliation Form [facility] - Antibiotic Education [facility] - Prescription Opioid Use [facility] - Patient Portal Instructions [facility] - Leadership Thank You Letter [facility] Prescriptions: - Centany 2 % Topical ointment - apply 1 application TOPICAL route 3 times per day; 15 gram tube; Refills: 0, [facility] Product Selection Permitted - Ibuprofen 600 mg Oral tablet - take 1 tablet ORAL route every 6 hours As needed take with food; 20 tablet; [facility] Refills: 0, Product Selection Permitted - Bactrim DS 800-160 mg Oral Tablet - take 1 tablet ORAL route every 12 hours for 7 days; 14 tablet; Refills: 0, [facility] Product Selection Permitted Signatures: Khris Weeks MD MD cha Ayala, Heidy RN RN ha1 Billy Reynolds RN RN rg5
--- NOTE | 2024-05-05 21:53 | ER ---
Nurse's Notes [facility] Name: Dee oJhnson Age: 58 yrs Sex: Female : 1965 Arrival Date: 05/05/2024 Time: 21:17 Bed 16 Private MD: Diagnosis: Laceration without foreign body, left foot Presentation: 05/05 21:26 Chief complaint: Patient states: LACERATION TO THE RIGHT FOOT. NOT BLEEDING. ha1 21:26 Coronavirus screen: Vaccine status: Patient reports being unvaccinated. Ebola Screen: ha1 No symptoms or risks identified at this time. Complicating Factors: There are no complicating factors for this patient. Initial Sepsis Screen: Does the patient meet any 2 criteria? No. Patient's initial sepsis screen is negative. Does the patient have a suspected source of infection? No. Patient's initial sepsis screen is negative. Risk Assessment: Do you want to hurt yourself or someone else? Patient reports no desire to harm self or others. Onset of symptoms was May 05, 2024. 21:26 Method Of Arrival: Wheelchair ha1 21:26 Acuity: BERNABE 3 ha1 Historical: - Allergies: 21:36 ACETAMINOPHEN; ha1 21:36 Cefdinir; ha1 - PMHx: 21:36 allergies; Hypertensive disorder; Hypothyroidism; ha1 - Immunization history:: Adult Immunizations not up to date, Last tetanus immunization: > 10 years ago. - Infectious Disease History:: Denies. - Social history:: Smoking status: Patient denies any tobacco usage or history of. Screenin:37 [facility] ED Fall Risk Assessment (Adult) History of falling in the last 3 months, ha1 including since admission No falls in past 3 months (0 pts) Confusion or Disorientation No (0 pts) Intoxicated or Sedated No (0 pts) Impaired Gait No (0 pts) Mobility Assist Device Used No (0 pt) Altered Elimination No (0 pt) Score/Fall Risk Level 0 - 2 = Low Risk Oriented to surroundings, Maintained a safe environment, Educated pt \T\ family on fall prevention, incl call for assistance when getting out of bed, Hourly rounding (assess needs \T\ fall precautionary measures) done. Abuse screen: Denies threats or abuse. Denies injuries from another. Nutritional screening: No deficits noted. Tuberculosis screening: No symptoms or risk factors identified. Assessment: 21:30 General: Appears in no apparent distress. Behavior is calm, cooperative, appropriate rg5 for age. 21:30 Pain: Complains of pain in right foot Quality of pain is described as aching. Neuro: rg5 Level of Consciousness is awake, alert, obeys commands, Oriented to person, place, time. Cardiovascular: Heart tones S1 S2 Capillary refill < 3 seconds Patient's skin is warm and dry. Respiratory: Airway is patent Trachea midline Respiratory effort is even, unlabored, Respiratory pattern is regular, symmetrical. GI: Abdomen is round non-distended, Abd is soft and non tender. : No signs and/or symptoms were reported regarding the genitourinary system. EENT: No signs and/or symptoms were reported regarding the EENT system. Derm: Skin is intact, Skin is normal, Skin temperature is warm. Musculoskeletal: Circulation, motion, and sensation intact. Range of motion: intact in all extremities. Injury Description: Laceration is clean, 2.6 to 7.5 cm long, not bleeding, was sustained 30-60 minutes ago. Vital Signs: 21:26 BP 150 / 77; Pulse 76; Resp 16 S; Temp 97.6(T); Pulse Ox 98% on R/A; Weight 108.86 kg; ha1 Height 5 ft. 6 in. ; 21:51 BP 150 / 77; Pulse 70; Resp 17; Pulse Ox 100% on R/A; rg5 21:26 Body Mass Index 38.74 (108.86 kg, 167.64 cm) ha1 ED Course: 21:21 Patient arrived in ED. [email or web address] 21:27 Khris Weeks MD is Attending Physician. yancy 21:29 Arm band placed on. rg5 21:30 Patient has correct armband on for positive identification. Bed in low position. Call rg5 light in reach. Side rails up X 1. 21:30 Assist provider with laceration repair on right foot that was between 2.6 to 7.5 cm rg5 using sutures. Set up tray. Performed by Khris Weeks MD. 21:31 Billy Reynolds, RN is Primary Nurse. rg5 21:36 Triage completed. ha1 22:28 Provided Education on: post er care. rg5 22:28 Patient did not have IV access during this emergency room visit. rg5 Administered Medications: 22:02 Drug: Trimethoprim-Sulfamethoxazole PO (160 mg-800 mg (DS) 1 tablet PO once Route: PO; rg5 :27 Follow up: Response: No adverse reaction rg5 22: Drug: Boostrix Tdap IM 0.5 ml IM once; as a single dose Route: IM; Site: affected area; rg5 :27 Follow up: Response: No adverse reaction rg5 Medication: 22:00 Vaccine Information Statement (VIS) provided today. Questions and/or concerns rg5 addressed. VIS edition date: March 31, 2025. Outcome: 21:53 Discharge ordered by . yancy 22:28 Discharged to home ambulatory, rg5 : Condition: stable 22:28 Discharge instructions given to patient, Instructed on discharge instructions, follow up and referral plans. Demonstrated understanding of instructions, follow-up care, Prescriptions given X 3, 22:30 Patient left the ED. rg5 Signatures: Khris Weeks MD MD cha Jeffries, Jennifer [email or web address] Chantal Jackson RN RN ha1 Billy Reynolds RN RN rg5
[2024-05-05] MEDS ORDERED: TDAP (DIPHTH,PERTUSS(ACELL),TET VAC) 0.5 ML VIAL IMVAC ONE (21:56)
[2024-05-05] MEDS ORDERED: SMZ./TMP. 800/160 MG TABLET ONE (21:56)
[2024-05-05] MEDS ORDERED: LIDOCAINE 2% W/EPI 1:200,000 MPF 20 ML VIAL IM ONE (22:00)
[2024-05-05 22:35] VITALS: BP 150/77; TEMP 97.6
[2024-05-05 22:36] VITALS: O2SAT 100
== END 2024-05-05 22:30 | disposition home or self-care (01) ==
LOC: ER 21:17
DX: S91.312A Laceration without foreign body, left foot, initial encounter (principal)
CPT/HCPCS: 12041; 96372; 99284; J2003

== ENCOUNTER 2024-05-15 11:05 | Emergency (ER) | payer BC ==
--- NOTE | 2024-05-15 11:38 | ER ---
Nurse's Notes [facility] Name: Dee Johnson Age: 58 yrs Sex: Female : 1965 Arrival Date: 05/15/2024 Time: 11:05 Bed 10 Private MD: Diagnosis: Encounter for removal of sutures Presentation: 05/15 11:24 Chief complaint: Patient states: Needs stitches removed from R foot. No fever. ll1 Coronavirus screen: Client denies travel out of the [place] in the last 14 days. At this time, the client does not indicate any symptoms associated with coronavirus-19. Ebola Screen: Patient denies travel to an Ebola-affected area in the 21 days before illness onset. Initial Sepsis Screen: Does the patient meet any 2 criteria? No. Patient's initial sepsis screen is negative. Does the patient have a suspected source of infection? No. Patient's initial sepsis screen is negative. Risk Assessment: Do you want to hurt yourself or someone else? Patient reports no desire to harm self or others. Onset of symptoms was May 05, 2024. 11:24 Method Of Arrival: Ambulatory ll1 11:24 Acuity: BERNABE 4 ll1 Triage Assessment: 11:27 General: Appears in no apparent distress. comfortable, Behavior is calm, cooperative. rs5 Historical: - Allergies: 11:24 ACETAMINOPHEN; ll1 11:24 Cefdinir; ll1 - PMHx: 11:24 allergies; Hypertensive disorder; Hypothyroidism; ll1 - Immunization history:: Adult Immunizations up to date. - Infectious Disease History:: Denies. - Social history:: Smoking status: Patient denies any tobacco usage or history of. Screenin:26 [facility] ED Fall Risk Assessment (Adult) History of falling in the last 3 months, rs5 including since admission No falls in past 3 months (0 pts) Confusion or Disorientation No (0 pts) Intoxicated or Sedated No (0 pts) Impaired Gait No (0 pts) Mobility Assist Device Used No (0 pt) Altered Elimination No (0 pt) Score/Fall Risk Level 0 - 2 = Low Risk Oriented to surroundings, Maintained a safe environment. Abuse screen: Denies threats or abuse. Nutritional screening: No deficits noted. Tuberculosis screening: No symptoms or risk factors identified. Assessment: 11:26 General: Appears in no apparent distress. comfortable. rs5 11:26 Pain: Denies pain. Neuro: Level of Consciousness is awake, alert, obeys commands, rs5 Oriented to person, place, time, situation. Cardiovascular: Patient's skin is warm and dry. Respiratory: Airway is patent Respiratory effort is even, unlabored, Respiratory pattern is regular, symmetrical. GI: Abdomen is round non-distended. : No signs and/or symptoms were reported regarding the genitourinary system. EENT: No signs and/or symptoms were reported regarding the EENT system. Derm: Skin is intact, Skin is pink, warm \T\ dry. Derm: suture noted to right inner foot. Musculoskeletal: Range of motion: intact in all extremities. 11:45 Reassessment: Patient and/or family updated on plan of care and expected duration. Pain rs5 level reassessed. Patient is alert, oriented x 3, equal unlabored respirations, skin warm/dry/pink. Vital Signs: 11:24 BP 143 / 79; Pulse 60; Resp 16; Temp 97.6; Pulse Ox 100% ; Pain 0/10; ll1 11:40 BP 130 / 82; Pulse 68; Resp 17; Pulse Ox 99% ; rs5 11:24 Pain Scale: Adult ll1 ED Course: 11:24 Patient arrived in ED. ll1 11:24 Arm band placed on Patient placed in an exam room, on a stretcher. ll1 11:25 Triage completed. ll1 11:25 David Alvarez MD is Attending Physician. ec2 11:26 Patient has correct armband on for positive identification. Placed in gown. Bed in low rs5 position. Call light in reach. Side rails up X2. 11:26 No provider procedures requiring assistance completed. rs5 11:45 Patient did not have IV access during this emergency room visit. rs5 11:46 Nicola Hampton, SILVIA is Primary Nurse. rs5 Administered Medications: No medications were administered Medication: 12:00 VIS not applicable for this client. rs5 Outcome: 11:38 Discharge ordered by . ec2 11:45 Discharged to home ambulatory, rs5 11:45 Condition: stable rs5 11:45 Discharge instructions given to patient, family, Instructed on discharge instructions, follow up and referral plans. Demonstrated understanding of instructions, follow-up care, 11:49 Patient left the ED. rs5 Signatures: Karen Walton RN RN ll1 Nicola Hampton RN RN rs5 David Alvarez MD MD ec2
--- NOTE | 2024-05-15 11:38 | EDPHYS ---
Physician Documentation [facility] Name: Dee Johnson Age: 58 yrs Sex: Female : 1965 Arrival Date: 05/15/2024 Time: 11:05 Bed 10 Private MD: ED Physician David Alvarez HPI: 05/15 11:38 This 58 yrs old Female presents to ER via Ambulatory with complaints of ec2 suture eval. 11:38 Patient arrives today for evaluation of her sutures. Patient had sutures placed ec2 approximately 1.5 weeks ago, x 4. No issues.. Historical: - Allergies: 11:24 ACETAMINOPHEN; ll1 11:24 Cefdinir; ll1 - PMHx: 11:24 allergies; Hypertensive disorder; Hypothyroidism; ll1 - Immunization history:: Adult Immunizations up to date. - Infectious Disease History:: Denies. - Social history:: Smoking status: Patient denies any tobacco usage or history of. ROS: 11:38 Constitutional: as per hpi ec2 Exam: 11:38 Constitutional: GEN: NAD Head: atraumatic Eyes: EOMI Ears: External ears are ec2 normal. CV: regular rate LUNGS: no respiratory distress ABD: non-distended SKIN: Well-healing skin laceration to the right foot without surrounding erythema or warmth, granulation tissue noted. MSK: no evidence of trauma Vital Signs: 11:24 BP 143 / 79; Pulse 60; Resp 16; Temp 97.6; Pulse Ox 100% ; Pain 0/10; ll1 11:40 BP 130 / 82; Pulse 68; Resp 17; Pulse Ox 99% ; rs5 11:24 Pain Scale: Adult ll1 Procedures: 11:39 Suture/Staple removal: Removed 4 sutures, from right foot, site appears well healed, ec2 Patient tolerated well. MDM: 11:25 Medical Screening Exam initiated ec2 11:38 Data reviewed: vital signs. ED course: Patient arrives today for evaluation of his her ec2 sutures. Examination remarkable for skin findings as above. I removed the sutures without issue. Will discharge home. Return precautions given.. Administered Medications: No medications were administered Disposition Summary: 05/15/24 11:38 Discharge Ordered Notes: Location: Home ec2 Condition: Stable ec2 Diagnosis - Encounter for removal of sutures ec2 Followup: ec2 - With: Private Physician - When: - Reason: Re-evaluation by your physician Discharge Instructions: - Discharge Summary Sheet ec2 - Suture Removal, Care After ec2 Forms: - Work release form ec2 - Medication Reconciliation Form ec2 - Antibiotic Education ec2 - Prescription Opioid Use ec2 - Patient Portal Instructions ec2 - Leadership Thank You Letter ec2 Signatures: Karen Walton RN RN ll1 Nicola Hampton RN RN rs5 David Alvarez MD MD ec2
[2024-05-15 12:02] VITALS: BP 143/79; TEMP 97.6; O2SAT 100
== END 2024-05-15 11:49 | disposition home or self-care (01) ==
LOC: ER 11:05
DX: Z48.02 Encounter for removal of sutures (principal)